=== PATIENT | female | born 1950 | race Caucasian/White ===

== ENCOUNTER 2021-11-22 11:37 | Emergency (ER) | payer OTHER ==
--- OUTSIDE RECORDS SUMMARY | 2021-11-22 11:40 | XMS REPORT | Continuity of Care Document ---
:1950 Author Organization [facility] t Address [address] [place] [address] [place] [address] Care Team Providers Name Role Phone Ogweno_B Attending Clinician Unavailable Disha ROTHMAN Attending Clinician Unavailable Disha Rothman MD Attending Clinician Doctor Unassigned, Name Attending Clinician Unavailable Wu_Ashanti Admitting Clinician Unavailable Payers Payer Name Policy Type Policy Number Effective Date Expiration Date S [facility] [id number] 2021 (MEDICARE 00:00:00 REPLACEMENT HMO) MEDICARE PART A \T\ [id number] 2009 B 00:00:00 [place] [id number] 2019 BENEFITS 00:00:00 Problems This patient has no known problems. Allergies, Adverse Reactions, Alerts Allergy Allergy Status Severity Reaction(s) Onset Inactive Treating Comm ents Source Name Type Date Date Clinician ACETAMIN DRUG Active Anaphylaxis 2020-0 Uni vers OPHEN INGREDI 2-03 ity of 00:00: [place] 00 [facility] Branch ASPIRIN DRUG Active Anaphylaxis 2020-0 Univ ers INGREDI 2-03 ity of 00:00: [place] 00 [facility] Branch CODEINE DRUG Active Anaphylaxis 2020-0 Univ ers INGREDI 2-03 ity of 00:00: [place] 00 [facility] Branch Acetamin Propensi Active Anaphylaxis 2020-0 U nivers ophen ty to 2-03 ity of adverse 00:00: [place] reaction 00 Medical s Branch Aspirin Propensi Active Anaphylaxis 2020-0 Un adriana ty to 2-03 ity of adverse 00:00: [place] reaction 00 Medical s Branch Codeine Propensi Active Anaphylaxis 2020-0 Un adriana ty to 2-03 ity of adverse 00:00: [place] reaction 00 Medical s Branch Social History Social Habit Start Date Stop Date Quantity Comments Source Sex Assigned At [facility] Smoking Status Start Date Stop Date Source Unknown if ever smoked Universit y [facility] Current every day smoker 2019-12-29 00:00:00 [facility] Ordered Filled Start Stop Current Ordering Indication Dosage Frequency Signature Comments Components Source Medication Medication Date Date Medication? Clinician (SIG) Name Name Tramadol 2020-0 Yes Take by Unive rs 100 mg 2-03 mouth. ity of tablet 21:00: Indication [place] 22 s: 4 a day Medical Branch Tramadol 2020-0 Yes Take by Unive rs 100 mg 2-03 mouth. ity of tablet 21:00: Indication [place] 22 s: 4 a day Medical Branch Tramadol 2020-0 Yes Take by Unive rs 100 mg 2-03 mouth. ity of tablet 21:00: Indication [place] 22 s: 4 a day Medical Branch morphine 15 2020-0 Yes Take by Un adriana mg TRer 2-03 mouth. ity of 21:00: [address] Branch oxyCODONE 5 2020-0 Yes Take by Un adriana mg TbOr 2-03 mouth. ity of 21:00: Indication [place] 21 s: 4 a day Medical Branch DIAZEPAM 2020-0 Yes Take by Unive rs ORAL 2-03 mouth. ity of 21:00: [place] [address] Medical Branch morphine 15 2020-0 Yes Take by Un adriana mg TRer 2-03 mouth. ity of 21:00: [place] [address] Medical Branch oxyCODONE 5 2020-0 Yes Take by Un adriana mg TbOr 2-03 mouth. ity of 21:00: Indication [place] 21 s: 4 a day Medical Branch DIAZEPAM 2020-0 Yes Take by Unive rs ORAL 2-03 mouth. ity of 21:00: [place] [address] Medical Branch morphine 15 2020-0 Yes Take by Un adriana mg TRer 2-03 mouth. ity of 21:00: [address] Branch oxyCODONE 5 2020-0 Yes Take by Un adriana mg TbOr 2-03 mouth. ity of 21:00: Indication [place] 21 s: 4 a day Medical Branch DIAZEPAM 2020-0 Yes Take by Unive rs ORAL 2-03 mouth. ity of 21:00: [address] Vital Signs Vital Name Observation Time Observation Value Comments Source Systolic blood 2019-12-29 20:53:00 105 mm[Hg] Univer sity [facility] pressure Medical Branch Diastolic blood 2019-12-29 20:53:00 72 mm[Hg] [facility] Heart rate 2019-12-29 20:53:00 97 /min [facility] Body weight 2019-12-29 20:53:00 77.111 kg [facility] Procedures Procedure Date / Time Performed Performing Clinician Caroline e ASSIGNMENT OF BENEFITS 2019-12-29 20:45:41 Doctor Unassigned, No [facility] Encounters Start End Encounter Admission Attending Care Care Encounter Source Date/Time Date/Time Type Type Clinicians Facility Department ID 2021-11-03 2021-11-03 Outpatient Ogweno_B DMG DMG [id number] [facility] 12:03:00 12:03:00 1209 [facility] 2021-10-27 2021-10-27 Outpatient Ogweno_B DMG DMG [id number] [facility] 08:02:00 08:02:00 1202 [facility] 2021-09-01 2021-09-01 [place]weno_[place] [id number]- [id number] [facility] 08:00:00 08:00:00 1007 Med[facility] Group 2021-08-22 2021-08-22 Outpatient Ogweno_B DMG DMG [id number] [facility] 01:10:00 01:10:00 0927 Med[facility] l Group 2021-03-14 2021-03-14 Outpatient DMG DMG [id number] [facility] 08:01:00 08:01:00 0419 Med[facility] l Group 2019-12-29 2019-12-29 Outpatient [facility] [id number] Univers 15:14:38 23:59:00 ANGÉLICA price [facility] 2019-12-29 2019-12-29 Hospital [facility] [id number] Univers 15:14:00 23:59:00 Encounter Angélica Gauthier John [id number] ity of Surgical [id number] Maurizio as Specialti [phone] Co dical es 809 [facility] 2019-12-29 2019-12-29 Office [facility] [id number] Univers 14:48:23 15:36:06 Visit [facility] [id number] it y of Surgical [id number] Maurizio as Specialti [id number] Co dical es 198 Branch [place] 2019-12-29 2019-12-29 Orders Doctor JESIKA [id number] Univers 00:00:00 00:00:00 Only Unassigned, JUAN FRANCISCO [id number] ity of [place] [facility] [id number] Maurizio as [phone] [place] [address] Branch Results This patient has no known results.
[2021-11-22] MEDS ORDERED: NA CHLORIDE 0.9% 500 ML ONE (14:46)
[2021-11-22 15:34] LABS: Protime INR 0.86
[2021-11-22 15:38] LABS: Hematocrit 46.9 % (36.0-45.0); Lymphocytes % 45.9 % (15.3-44.8); MPV 9.5 fL (7.6-11.3); RBC Red Blood Cell Count 4.46 M/uL (3.86-4.86)
[2021-11-22 16:08] LABS: Blood Morphology Comment NOTED (NOT SEEN); Macrocytosis 1+; Platelet Estimate ADEQ; White Blood Cell Scan OK (OK)
[2021-11-22 16:31] LABS: Potassium 4.7 mmol/L (3.5-5.1)
--- NOTE | 2021-11-22 17:41 | RAD REPORT ---
EXAM DESCRIPTION: US - Extremity Venous Uni Ltd - 11/22/2021 5:28 pm CLINICAL HISTORY: Pain;Swelling COMPARISON: None. TECHNIQUE: Real-time sonographic evaluation of the left lower extremity deep venous system was perfo rmed. FINDINGS: Echogenic material is present within portions of the left common femoral vein and the supe rficial greater saphenous vein. There is absent or only partial compression. Blood flow is diminished but not fully occluded through these vessels. The remaining portions of the common femoral vein, the femoral vein and popliteal vein show normal blood flow with good compression. No posterior tibial ve in thrombus. IMPRESSION: Thrombus is present partially occluding the left common femoral vein and extending into the greater saphenous vein.
--- NOTE | 2021-11-22 19:28 | ER ---
Nurse's Notes [facility] Name: Marleni Roth Age: 71 yrs Sex: Female : 1950 Arrival Date: 11/22/2021 Time: 11:42 Bed 16 Private MD: Diagnosis: Acute embolism and thrombosis of unspecified deep veins of left lower extremity Presentation: 11/22 12:40 Chief complaint: Patient states: two blood clots in leg x2 days; went to [place] [address] and was diagnosed yesterday. Was told to com here by [place]. Coronavirus screen: Vaccine status: Patient reports receiving the 2nd dose of the covid vaccine. Client denies travel out of the [place] in the last 14 days. Ebola Screen: Patient negative for fever greater than or equal to 101.5 degrees Fahrenheit, and additional compatible Ebola Virus Disease symptoms Patient denies exposure to infectious person. Patient denies travel to an Ebola-affected area in the 21 days before illness onset. Initial Sepsis Screen: Does the patient meet any 2 criteria? No. Patient's initial sepsis screen is negative. Does the patient have a suspected source of infection? No. Patient's initial sepsis screen is negative. Risk Assessment: Do you want to hurt yourself or someone else? Patient reports no desire to harm self or others. Onset of symptoms was November 22, 2021. 12:40 Method Of Arrival: Wheelchair [facility] 12:40 Acuity: LUCINDA 3 5 Triage Assessment: 12:45 General: Appears Pt falling asleep in motorized wheelchair . Behavior is calm, [facility] appropriate for age, drowsy, flat. Pain: Denies pain. Historical: - Allergies: 12:45 Aspirin; [facility] 12:45 Codeine; [facility] 12:45 PENICILLINS; [facility] 12:45 Erythromycin; [facility] 12:45 Tylenol; [facility] - PMHx: 12:45 Cancer; CHF; COPD; [facility] - Immunization history:: Adult Immunizations up to date, . - Social history:: Smoking status: Patient reports the use of cigarette tobacco products, smokes one pack cigarettes per day. Screenin:03 Abuse screen: Denies threats or abuse. Nutritional screening: No deficits noted. ap3 Tuberculosis screening: No symptoms or risk factors identified. 13:05 Fall Risk No fall in past 12 months (0 pts). Secondary diagnosis (15 points) impaired ap3 mobility, No IV (0 pts). Ambulatory Aid- Crutches/Cane/Walker (15 pts). Gait- Impaired (20 pts.). Mental Status- Oriented to own ability (0 pts). Total Santana Fall Scale indicates High Risk Score (45 or more points). Fall prevention measures have been instituted. Placed Close to Nursing Station Frequent Obs/Assessments Occuring As available patient and family educated on Fall Prevention Program and Strategies. Assessment: 13:03 General: Appears comfortable, Behavior is drowsy. Pain: Complains of pain in right leg ap3 and left leg. Neuro: Level of Consciousness is lethargic, Oriented to person, place, time, situation, Speech is normal. Cardiovascular: Capillary refill < 3 seconds Patient's skin is warm and dry. Respiratory: Airway is patent Respiratory effort is even, unlabored, Respiratory pattern is regular, symmetrical. 15:37 Reassessment: patient falling asleep in personal wheelchair. when nurse asked why she ap3 is so sleepy, the patient reports that she was up all night last night at another hospital and she is tired. . 20:24 Reassessment: Patient and/or family updated on plan of care and expected duration. Pain sm5 level reassessed. General: Appears in no apparent distress. Behavior is calm, cooperative. Neuro: Level of Consciousness is awake, alert, Oriented to person, place, time, situation. Vital Signs: 12:40 BP 89 / 57; Pulse 62; Resp 16; Temp 97.0; Pulse Ox 90% on R/A; Weight 79.38 kg; Height jh5 5 ft. 9 in. (175.26 cm); 12:46 BP 91 / 50; Pulse 59; Resp 18; Pulse Ox 88% ; jh5 13:01 BP 112 / 65; Pulse 56; Pulse Ox 97% on 2 lpm NC; ap3 15:46 BP 104 / 62; Pulse 49; Pulse Ox 99% on 2 lpm NC; ap3 17:58 BP 106 / 48; Pulse 50; Resp 18; Pulse Ox 98% on 2 lpm NC; tm3 19:22 BP 84 / 63; Pulse 44; Resp 12; Pulse Ox 99% on R/A; sm5 19:29 BP 112 / 53; Pulse 46; Resp 16; Pulse Ox 97% ; sm5 19:58 BP 104 / 74; Pulse 47; Resp 18; Pulse Ox 98% ; sm5 12:40 Body Mass Index 25.84 (79.38 kg, 175.26 cm) 5 ED Course: 11:42 Patient arrived in ED. ds1 12:44 Triage completed. jh5 12:46 Arm band placed on right wrist. jh5 12:56 Ozzie Segal NP is PHCP. pm1 12:56 Pavan Brandon MD is Attending Physician. pm1 12:58 Gissell Montero, SUNITHA is Primary Nurse. ll1 13:00 Patient placed in a hallway bed, on oxygen. ll1 13:04 Patient has correct armband on for positive identification. Pulse ox on. NIBP on. ap3 14:40 Alecia Ruff, SUNITHA is Primary Nurse. ap3 15:18 Inserted saline lock: 22 gauge in left upper arm, using aseptic technique. Blood ap3 collected. 16:01 Lab(s) recollected, by me, sent to lab. ap3 17:28 Extremity Venous Uni Ltd US In Process Unspecified. EDMS 20:24 No provider procedures requiring assistance completed. IV discontinued, intact, sm5 bleeding controlled, No redness/swelling at site. Pressure dressing applied. Administered Medications: 15:24 Drug: NS 0.9% 500 ml Route: IV; Rate: bolus; Site: left upper arm; ap3 19:36 Drug: Lovenox (enoxaparin) 1 mg/kg Route: Sub-Q; Site: right upper abdomen; sm5 20:25 Follow up: Response: No adverse reaction 5 Outcome: 19:28 Discharge ordered by . pm1 20:24 Discharged to home via wheelchair, with significant other. sm5 20:24 Condition: good 20:24 Discharge instructions given to patient, significant other, Instructed on discharge instructions, follow up and referral plans. medication usage, lovenox education Demonstrated understanding of instructions, follow-up care, medications, Prescriptions given X 1. 20:25 Patient left the ED. 5 Signatures: Dispatcher [employer] EDMS Maciej Montenegro tm3 Taylor, Indu ds1 Ozzie Segal, ROMA [employer]ING FACTORY WORKER pm1 Alecia Ruff RN RN ap3 Gissell Montero RN RN ll1 Kiki Ellis RN RN jh5 Jeanine Hedrick, RN RN sm5
--- NOTE | 2021-11-22 19:28 | EDPHYS ---
Physician Documentation [facility] Name: Marleni Roht Age: 71 yrs Sex: Female : 1950 Arrival Date: 11/22/2021 Time: 11:42 Bed 16 Private MD: ED Physician Pavan Brandon HPI: 11/22 13:06 This 71 yrs old Female presents to ER via Wheelchair with complaints of Blood Clot in pm1 Leg. 13:06 The patient presents with pain, swelling. The complaints affect the left leg. Context: pm1 resulted from an unknown cause. Onset: The symptoms/episode began/occurred 4 day(s) ago. Modifying factors: The symptoms are alleviated by nothing. the symptoms are aggravated by nothing. Associated signs and symptoms: Pertinent negatives shortness of breath, chest pain. Treatment prior to arrival includes: Patient had an ultrasound at the [facility] yesterday and diagnosed with DVT. She was discharged home without any medications because she reports allergy, nausea, to multiple oral anticoagulants. She requested Lovenox SQ injection prescription because she does not have any allergies to that medication. She was informed that they do not write prescriptions for Lovenox and instructed her to present to the ER here for treatment. Severity of symptoms: in the emergency department the symptoms are unchanged. The patient has experienced a previous episode, DVT in the past treated with lovenox. The patient has been recently seen by a physician: with similar presenting complaints, and apparently given a diagnosis of DVT at [facility]. Historical: - Allergies: 12:45 Aspirin; 5 12:45 Codeine; 5 12:45 PENICILLINS; 5 12:45 Erythromycin; 5 12:45 Tylenol; jh5 - PMHx: 12:45 Cancer; CHF; COPD; jh5 - Immunization history:: Adult Immunizations up to date, . - Social history:: Smoking status: Patient reports the use of cigarette tobacco products, smokes one pack cigarettes per day. ROS: 20:58 Constitutional: Negative for fever, chills, and weight loss. pm1 20:58 Skin: Negative for injury, rash, and discoloration, Neuro: Negative for headache, weakness, numbness, tingling, and seizure. 20:58 Abdomen/GI: Negative for abdominal pain, nausea, vomiting, diarrhea, and constipation, Back: Negative for injury and pain. 20:58 Cardiovascular: Negative for chest pain, palpitations. 20:58 Respiratory: Negative for shortness of breath, sputum production, wheezing. 20:58 MS/extremity: Positive for swelling, of the left leg. 20:58 All other systems are negative. Exam: 20:58 Constitutional: This is a well developed, well nourished patient who is awake, alert, pm1 and in no acute distress. Head/Face: Normocephalic, atraumatic. 20:58 Skin: Warm, dry with normal turgor. Normal color with no rashes, no lesions, and no evidence of cellulitis. 20:58 Chest/axilla: Exam negative for acute changes, Inspection: normal, Palpation: is normal. 20:58 Cardiovascular: Exam negative for acute changes, Rate: normal, Rhythm: regular, Pulses: no pulse deficits are appreciated. 20:58 Respiratory: Exam negative for acute changes, respiratory distress, shortness of breath, Breath sounds: are clear throughout. 20:58 Musculoskeletal/extremity: Extremities: grossly normal except: noted in the medial aspect of left thigh: tenderness, mild swelling. No calf tenderness, the left leg and right leg Sensation intact. 20:58 Neuro: Exam negative for acute changes, Orientation: is normal, Mentation: is normal, Motor: is normal, moves all fours. Vital Signs: 12:40 BP 89 / 57; Pulse 62; Resp 16; Temp 97.0; Pulse Ox 90% on R/A; Weight 79.38 kg; Height jh5 5 ft. 9 in. (175.26 cm); 12:46 BP 91 / 50; Pulse 59; Resp 18; Pulse Ox 88% ; jh5 13:01 BP 112 / 65; Pulse 56; Pulse Ox 97% on 2 lpm NC; ap3 15:46 BP 104 / 62; Pulse 49; Pulse Ox 99% on 2 lpm NC; ap3 17:58 BP 106 / 48; Pulse 50; Resp 18; Pulse Ox 98% on 2 lpm NC; tm3 19:22 BP 84 / 63; Pulse 44; Resp 12; Pulse Ox 99% on R/A; sm5 19:29 BP 112 / 53; Pulse 46; Resp 16; Pulse Ox 97% ; sm5 19:58 BP 104 / 74; Pulse 47; Resp 18; Pulse Ox 98% ; sm5 12:40 Body Mass Index 25.84 (79.38 kg, 175.26 cm) 5 MDM: 13:00 Patient medically screened. pm1 19:08 Counseling: I had a detailed discussion with the patient and/or guardian regarding: the pm1 historical points, exam findings, and any diagnostic results supporting the discharge/admit diagnosis, radiology results, the need for outpatient follow up, to return to the emergency department if symptoms worsen or persist or if there are any questions or concerns that arise at home. 21:02 Data reviewed: vital signs. Data interpreted: Pulse oximetry: on 2L(s) per nasal pm1 canula, Patient is on continuous home O2 is 98 %. Interpretation: normal. 11/22 14:28 Order name: CBC with Diff; Complete Time: 16:27 pm1 11/22 14:28 Order name: PT-INR; Complete Time: 17:07 pm1 11/22 13:01 Order name: Extremity Venous [facility] Ltd US; Complete Time: 19:08 pm1 11/22 14:28 Order name: BMP; Complete Time: 16:56 pm1 11/22 16:08 Order name: CBC Smear Scan; Complete Time: 16:27 EDMS 11/22 14:28 Order name: IV Saline Lock; Complete Time: 15:18 pm1 Administered Medications: 15:24 Drug: NS 0.9% 500 ml Route: IV; Rate: bolus; Site: left upper arm; ap3 19:36 Drug: Lovenox (enoxaparin) 1 mg/kg Route: Sub-Q; Site: right upper abdomen; sm5 20:25 Follow up: Response: No adverse reaction 5 Disposition: 11/23 07:27 Co-signature as Attending Physician, Pavan Brandon MD I agree with the assessment and kdr plan of care. Disposition Summary: 11/22/21 19:28 Discharge Ordered Location: Home pm1 Problem: new pm1 Symptoms: have improved pm1 Condition: Stable pm1 Diagnosis - Acute embolism and thrombosis of unspecified deep veins of left lower extremity pm1 Followup: pm1 - With: Emergency Department - When: As needed - Reason: Worsening of condition Followup: pm1 - With: Private Physician - When: 2 - 3 days - Reason: Recheck today's complaints, Continuance of care, Re-evaluation by your physician Discharge Instructions: - Discharge Summary Sheet pm1 - Deep Vein Thrombosis pm1 - Anticoagulant Injection Instructions Using a Prefilled Syringe pm1 Forms: - Medication Reconciliation Form pm1 - Thank You Letter pm1 - Antibiotic Education pm1 - Prescription Opioid Use pm1 Prescriptions: - Lovenox 100 mg/mL Subcutaneous Syringe - inject 0.8 milliliter by SUBCUTANEOUS route every 12 hours; 20 Syringe; pm1 Refills: 0, Product Selection Permitted Signatures: Dispatcher [employer] EDVA Pavan Brandon MD MD kdr Marinas, Patrick, NP PSYCHIATRIC TECHNICIAN pm1 Alecia Ruff RN RN ap3 Kiki Ellis RN RN jh5 Jeanine Hedrick RN RN sm5
[2021-11-22] MEDS ORDERED: ENOXAPARIN 80 MG/0.8 ML SQ ONE (19:34)
[2021-11-22 20:41] VITALS: TEMP 97
[2021-11-22 20:51] VITALS: BP 104/74; O2SAT 98
== END 2021-11-22 20:25 | disposition home or self-care (01) ==
LOC: ER 11:37
DX: I82.412 Acute embolism and thrombosis of left femoral vein (principal)
CPT/HCPCS: 93005; 85025; 80048; 36415; 85610; 93971; 96372; 99284; J7040

== ENCOUNTER 2022-03-14 14:55 | Emergency (ER) | payer OTHER ==
--- OUTSIDE RECORDS SUMMARY | 2022-03-14 14:59 | XMS REPORT | Continuity of Care Document ---
:1950 Author Organization [facility] t Address [address] [place] [address] [place] [address] Care Team Providers Name Role Phone Powers Attending Clinician Unavailable Wu_Ashanti Attending Clinician Unavailable Disha ROTHMAN Attending Clinician Unavailable Disha Rothman MD Attending Clinician Doctor Unassigned, Name Attending Clinician Unavailable Wu_Ashanti Admitting Clinician Unavailable Payers Payer Name Policy Type Policy Number Effective Date Expiration Date S [facility] [id number] 2021 (MEDICARE 00:00:00 REPLACEMENT HMO) MEDICARE PART A \T\ [id number] 2009 B 00:00:00 [place] [id number] 2019 BENEFITS 00:00:00 Problems This patient has [...] Source Sex Assigned At Uni versity of [place] [facility] Smoking Status Start Date Stop Date Source Unknown if ever smoked Universit y [facility] Current every day smoker 2019-12-29 [facility]:00:[address] [facility] F[facility] Start Stop Current Ordering [...] mg TRer 2-03 mouth. ity of 21:00: [place] [address] Medical Branch oxyCODONE 5 2020-0 Yes Take by Un adriana mg TbOr 2-03 mouth. ity of 21:00: Indication [place] 21 s: 4 a day Medical Branch DIAZEPAM 2020-0 Yes Take by Unive rs ORAL 2-03 mouth. ity of 21:00: [place] [address] Medical Branch morphine 15 2020-0 Yes Take by Un adriana mg TRer 2-03 mouth. ity of 21:00: [place] [address] Medical Branch oxyCODONE 5 2020-0 Yes Take by Un adriana mg TbOr 2-03 mouth. ity of 21:00: Indication [place] 21 s: 4 a day Medical Branch DIAZEPAM 2020-0 Yes Take by Unive rs ORAL 2-03 mouth. ity of 21:00: [place] [address] Medical Branch morphine 15 2020-0 Yes Take by Un adriana mg TRer 2-03 mouth. ity of 21:00: [place] [address] Medical Branch oxyCODONE 5 2020-0 Yes Take by Un adriana mg TbOr 2-03 mouth. ity of 21:00: Indication [place] 21 s: 4 a day Medical Branch DIAZEPAM 2020-0 Yes Take by Unive rs ORAL 2-03 mouth. ity of 21:00: [address] Vital Signs Vital Name Observation Time Observation Value Comments Source Systolic blood 2019-12-29 20:53:00 105 mm[Hg] Univer sity [facility] pressure Medical Branch Diastolic blood 2019-12-29 20:53:00 72 mm[Hg] [facility] Heart rate 2019-12-29 20:53:00 97 /min [facility] Body weight 2019-12-29 20:53:00 77.111 kg [facility] Procedures Procedure Date / Time Performed Performing Clinician Brenna e ASSIGNMENT OF BENEFITS 2019-12-29 20:45:41 Doctor Unassigned, No [facility] Encounters Start End Encounter Admission Attending Care Care Encounter Source Date/Time Date/Time Type Type Clinicians Facility Department ID 2021-12-[address] [facility] [id number] [address] 14:36:40 [facility] 2021-12-21 Outpatient Gio [facility] [id number] 14:36:16 [facility] 2021-11-25 2021-11-25 Outpatient Ogweno_B [facility] [id number] [facility] 09:01:00 09:01:00 1231 [facility] 2021-11-03 2021-11-03 Outpatient Ogweno_B [facility] [id number] [facility] 12:03:00 12:03:00 1209 [facility] 2021-10-27 2021-10-27 Outpatient Ogweno_B [facility] [id number] [facility] 08:02:00 08:02:00 1202 [facility] 2021-09-01 2021-09-01 Outpatient Ogweno_B [facility] DMG [id number] [facility] 08:00:00 08:00:00 1007 Med[facility] Group 2021-08-22 2021-08-22 Outpatient Ogweno_B [facility]G [id number] [facility] 01:10:00 01:10:00 0927 Med[facility] l Group 2021-03-14 2021-03-14 Outpatient DMG DMG [id number] [facility] 08:01:00 08:01:00 0419 Medica l Group 2019-12-29 2019-12-29 Outpatient O LORNA [facility] [id number] Univers 15:14:38 23:59:00 ANGÉLICA ity of [facility] 2019-12-29 2019-12-29 [facility] [id number] Univers 15:14:00 23:59:00 Encounter Angélica Lopez [id number] ity of Surgical [id number] Maurizio as Specialti [id number] Co ruchial es 809 [facility] 2019-12-29 2019-12-29 Office Lorna [facility] [id number] [facility] 14:48:23 15:36:06 Visit Angélica Lopez [id number] it y of Surgical [id number] Maurizio as Specialti [id number] Co meli es 198 [facility] 2019-12-29 2019-12-29 Orders Doctor JESIKA [id number] Univers 00:00:00 00:00:00 Only Unassigned, JUAN FRANCISCO [id number] ity of [place] [facility] [id number] Maurizio as [phone] [place] [address] Branch Results This patient has no known results.
[2022-03-14 17:35] LABS: Absolute Lymphocytes (CBC) 2.4 K/uL (0.7-4.9); Hematocrit 42.1 % (36.0-45.0); Lymphocytes % 31.3 % (15.3-44.8); MPV 8.7 fL (7.6-11.3)
[2022-03-14 17:42] LABS: Protime INR 1.02
[2022-03-14 17:51] LABS: ALT/SGPT 17 U/L (12-78); AST/SGOT 10 U/L (15-37); Albumin 3.2 g/dL (3.4-5.0); Alkaline Phosphatase 83 U/L (45-117); BUN Blood Urea Nitrogen 6 mg/dL (7-18); Bicarbonate 28 mmol/L (21-32); Bilirubin Total 0.3 mg/dL (0.2-1.0); Glucose Level 102 mg/dL (74-106); Magnesium 2.3 mg/dL (1.8-2.4); NT PRO-BNP 343 pg/mL (<125); Potassium 3.5 mmol/L (3.5-5.1); Protein, Total 6.8 g/dL (6.4-8.2); Sodium Level 141 mmol/L (136-145); Troponin High Sensitivity 5.5 pg/mL (<58.9)
[2022-03-14 17:54] LABS: Bilirubin Direct < 0.1 mg/dL (0-0.2)
--- NOTE | 2022-03-14 18:17 | RAD REPORT ---
EXAM DESCRIPTION: US - Extrem Venous W Compress Gael - 03/14/2022 6:12 pm CLINICAL HISTORY: SWELLING COMPARISON: None. TECHNIQUE: Real-time sonographic evaluation of the bilateral lower extremity common femoral, superfi cial femoral, popliteal and posterior tibial veins was performed. FINDINGS: Normal compressibility, flow augmentation, phasic flow and spontaneous flow are identified in the left and right lower extremity common femoral, superficial femoral, popliteal and posterior t ibial veins. No intraluminal filling defects seen. IMPRESSION: No DVT in either lower extremity.
--- NOTE | 2022-03-14 18:54 | RAD REPORT ---
EXAM DESCRIPTION: RAD - Chest Single View - 03/14/2022 6:25 pm CLINICAL HISTORY: SWELLING COMPARISON: Portable 11/08/2017 TECHNIQUE: AP portable chest image was obtained 03/14/2022 6:25 pm . FINDINGS: No acute lung parenchymal process seen. Interstitial pattern is similar to comparison. Sev erity of chronic pattern could mask a mild interstitial edema or infiltrate. No consolidation or mass . Hilar regions are similar to comparison. Trachea is midline. Heart and vasculature are normal. No measurable pleural effusion and no pneumotho rax. No acute bony abnormality seen. No acute aortic findings suspected. IMPRESSION: Prominent interstitial pattern similar to comparison. Baseline pattern could mask mild edema or infiltrate.
--- NOTE | 2022-03-14 19:09 | EDPHYS ---
Physician Documentation [facility] Name: Marleni Roth Age: 71 yrs Sex: Female : 1950 Arrival Date: 03/14/2022 Time: 14:56 Bed 15 Private MD: ED Physician Penny Amaro HPI: 03/14 16:30 This 71 yrs old Female presents to ER via Wheelchair with complaints of Feet Swelling, cp Abdominal Swelling. 16:30 The patient presents with swelling, tenderness. The complaints affect the right leg and cp left leg. 16:30 Context: resulted from an unknown cause, the patient is able to ambulate, with mild cp difficulty, patient reports history of DVT to left leg. 16:30 Onset: The symptoms/episode began/occurred 1 week(s) ago. Associated signs and cp symptoms: Pertinent negatives fever, warmth, weakness, chest pain, shortness of breath. Treatment prior to arrival includes: no previous treatment. Severity of symptoms: in the emergency department the symptoms are unchanged, despite home interventions. Historical: - Allergies: 16:13 Aspirin; iw 16:13 Codeine; iw 16:13 Erythromycin; iw 16:13 PENICILLINS; iw 16:13 Tylenol; iw 16:13 pain relievers; iw - PMHx: 16:13 Cancer; CHF; COPD; dvt; iw - Immunization history:: Adult Immunizations up to date. - Social history:: Smoking status: Patient denies any tobacco usage or history of. ROS: 16:35 Constitutional: Negative for body aches, chills, fever, poor PO intake. cp 16:35 Eyes: Negative for injury, pain, redness, and discharge. cp 16:35 ENT: Negative for drainage from ear(s), ear pain, sore throat, difficulty swallowing, difficulty handling secretions. 16:35 Cardiovascular: Positive for edema, Negative for chest pain, palpitations. 16:35 Respiratory: Negative for cough, shortness of breath, wheezing. 16:35 Abdomen/GI: Negative for abdominal pain, nausea, vomiting, and diarrhea. 16:35 Back: Negative for pain at rest, pain with movement. 16:35 : Negative for urinary symptoms. 16:35 Neuro: Negative for altered mental status, headache, weakness. 16:35 All other systems are negative. Exam: 16:40 Constitutional: The patient appears in no acute distress, alert, awake, cp non-diaphoretic, non-toxic, well developed, well nourished, obese. 16:40 Head/Face: Normocephalic, atraumatic. cp 16:40 Eyes: Periorbital structures: appear normal, Conjunctiva: normal, no exudate, no injection, Sclera: no appreciated abnormality, Lids and lashes: appear normal, bilaterally. 16:40 ENT: External ear(s): are unremarkable, Nose: is normal, Mouth: Lips: moist, Oral mucosa: moist, Posterior pharynx: Airway: no evidence of obstruction, patent. 16:40 Neck: ROM/movement: is normal, is supple, without pain, no range of motions limitations. 16:40 Chest/axilla: Inspection: normal. 16:40 Cardiovascular: Rate: bradycardic, Rhythm: regular, Edema: pedal edema, that is mild, ankle edema, that is moderate, JVD: is not appreciated. 16:40 Respiratory: the patient does not display signs of respiratory distress, Respirations: normal, no use of accessory muscles, no retractions, labored breathing, is not present, Breath sounds: are clear throughout, no decreased breath sounds, no stridor, no wheezing. 16:40 Abdomen/GI: Exam negative for discomfort, distension, guarding, Inspection: abdomen appears normal. 16:40 Skin: cellulitis, is not appreciated, no rash present. 16:40 Neuro: Orientation: to person, place \T\ time. Mentation: is normal, Motor: moves all fours, strength is normal. Vital Signs: 16:11 BP 125 / 64; Pulse 59; Resp 16; Temp 97.8; Pulse Ox 99% on R/A; iw 18:24 BP 138 / 64; Pulse 53; Resp 17; Pulse Ox 97% ; ll1 MDM: 17:00 Differential diagnosis: CHF, dependent edema, DVT, renal failure. cp 17:17 Patient medically screened. cp 19:08 Data reviewed: vital signs, nurses notes, lab test result(s), EKG, radiologic studies, cp plain films, ultrasound. 19:08 Test interpretation: by ED physician or midlevel provider: ECG, plain radiologic cp studies. Counseling: I had a detailed discussion with the patient and/or guardian regarding: the historical points, exam findings, and any diagnostic results supporting the discharge/admit diagnosis, lab results, radiology results, the need for outpatient follow up, a family practitioner, to return to the emergency department if symptoms worsen or persist or if there are any questions or concerns that arise at home. 03/14 16:24 Order name: Basic Metabolic Panel; Complete Time: 17:58 cp 03/14 17:59 Interpretation: Normal except: CL 108; BUN 6; GFR 61. cp 03/14 16:24 Order name: CBC with Diff; Complete Time: 17:58 cp 03/14 17:59 Interpretation: Normal except: MCV 108.0; MCH 36.1; RDW 15.3. cp 03/14 16:24 Order name: LFT's; Complete Time: 17:58 cp 03/14 16:24 Order name: Magnesium; Complete Time: 17:58 cp 03/14 16:24 Order name: NT PRO-BNP; Complete Time: 17:58 cp 03/14 17:59 Interpretation: Abnormal: NT PRO-BNP 343. cp 03/14 16:24 Order name: PT-INR; Complete Time: 17:58 cp 03/14 16:24 Order name: Troponin HS; Complete Time: 17:58 cp 03/14 16:24 Order name: XRAY Chest (1 view); Complete Time: 18:58 cp 03/14 16:24 Order name: EKG; Complete Time: 16:24 cp 03/14 16:24 Order name: Cardiac monitoring; Complete Time: 18:29 cp 03/14 16:24 Order name: EKG - Nurse/Tech; Complete Time: 18:29 cp 03/14 16:24 Order name: IV Saline Lock; Complete Time: 17:34 cp 03/14 16:24 Order name: US Extremity Venous W Compression Gael; Complete Time: 18:37 cp 03/14 16:24 Order name: Labs collected and sent; Complete Time: 17:35 cp 03/14 16:24 Order name: O2 Per Protocol; Complete Time: 17:54 cp 03/14 16:24 Order name: O2 Sat Monitoring; Complete Time: 17:53 cp Administered Medications: 19:26 Drug: Lasix (furosemide) 40 mg Route: IVP; Site: right antecubital; [facility] 19:26 Follow up: Response: Medication administered at discharge. 5 Disposition Summary: 03/14/22 19:08 Discharge Ordered Location: Home cp Problem: new cp Symptoms: have improved cp Condition: Stable cp Diagnosis - Edema, unspecified cp Followup: cp - With: Private Physician - When: 2 - 3 days - Reason: Worsening of condition Discharge Instructions: - Discharge Summary Sheet cp - Edema cp Forms: - Medication Reconciliation Form cp - Thank You Letter cp - Antibiotic Education cp - Prescription Opioid Use cp Prescriptions: - Lasix 20 mg Oral Tablet - take 1 tablet by ORAL route once daily for 7 days; 7 tablet; Refills: 0, cp Product Selection Permitted Addendum: 03/16/2022 18:40 Co-signature as Attending Physician, Penny hansen a2 Signatures: Dispatcher [employer] Nadia Louis RN RN Rafa Wooten PA PA cp Alzahri, Mohammad, MD MD ma2 Gissell Montero RN RN ll1 Jeanine Hedrick RN RN sm5 Corrections: (The following items were deleted from the chart) 03/14 19:07 16:45 This 71 yrs old Female presents to ER via Wheelchair with complaints of Feet cp Swelling, Abdominal Swelling. cp
--- NOTE | 2022-03-14 19:09 | ER ---
Nurse's Notes [facility] Name: Marleni Roth Age: 71 yrs Sex: Female : 1950 Arrival Date: 03/14/2022 Time: 14:56 Bed 15 Private MD: Diagnosis: Edema, unspecified Presentation: 03/14 16:11 Chief complaint: Patient states: jenn feet , jenn leg and jenn hip swelling started about iw a week ago, had a DVT in left leg and completed treatment. Coronavirus screen: At this time, the client does not indicate any symptoms associated with coronavirus-19. Ebola Screen: Patient negative for fever greater than or equal to 101.5 degrees Fahrenheit, and additional compatible Ebola Virus Disease symptoms Patient denies exposure to infectious person. Patient denies travel to an Ebola-affected area in the 21 days before illness onset. No symptoms or risks identified at this time. Initial Sepsis Screen: Does the patient meet any 2 criteria? No. Patient's initial sepsis screen is negative. Does the patient have a suspected source of infection? No. Patient's initial sepsis screen is negative. Risk Assessment: Do you want to hurt yourself or someone else? Patient reports no desire to harm self or others. Onset of symptoms was March 07, 2022. 16:11 Method Of Arrival: Wheelchair iw 16:11 Acuity: LUCINDA 3 iw Historical: - Allergies: 16:13 Aspirin; iw 16:13 Codeine; iw 16:13 Erythromycin; iw 16:13 PENICILLINS; iw 16:13 Tylenol; iw 16:13 pain relievers; iw - PMHx: 16:13 Cancer; CHF; COPD; dvt; iw - Immunization history:: Adult Immunizations up to date. - Social history:: Smoking status: Patient denies any tobacco usage or history of. Screenin:55 Abuse screen: Denies threats or abuse. Nutritional screening: No deficits noted. ll1 Tuberculosis screening: No symptoms or risk factors identified. Fall Risk IV access (20 points). Total Santana Fall Scale indicates No Risk (0-24 pts). Assessment: 17:54 General: Appears uncomfortable, Behavior is cooperative, appropriate for age. Pain: ll1 Complains of pain in right leg and left leg Quality of pain is described as aching, pressure, Aggravated by increased activity. GI: Reports lower abdominal pain, upper abdominal pain, bloating. Musculoskeletal: Circulation, motion, and sensation intact. Capillary refill < 3 seconds, Reports swelling BLE. 19:26 GI: Bowel sounds present X 4 quads. Abd is soft. sm5 Vital Signs: 16:11 BP 125 / 64; Pulse 59; Resp 16; Temp 97.8; Pulse Ox 99% on R/A; iw 18:24 BP 138 / 64; Pulse 53; Resp 17; Pulse Ox 97% ; ll1 ED Course: 14:56 Patient arrived in ED. am2 15:49 Rafa Thornton PA is PHCP. cp 15:49 Penny Amaro MD is Attending Physician. cp 16:13 Triage completed. iw 16:13 Arm band placed on. iw 17:35 Inserted saline lock: 22 gauge in right antecubital area, using aseptic technique. ss Blood collected. 17:53 Gissell Montero RN is Primary Nurse. ll1 17:55 Patient has correct armband on for positive identification. Bed in low position. Call ll1 light in reach. Side rails up X 1. security monitor on. Pulse ox on. NIBP on. 18:14 US Extremity Venous W Compression Jenn In Process Unspecified. EDMS 18:27 XRAY Chest (1 view) In Process Unspecified. EDMS 19:26 No provider procedures requiring assistance completed. IV discontinued, intact, sm5 bleeding controlled, No redness/swelling at site. Pressure dressing applied. Administered Medications: 19:26 Drug: Lasix (furosemide) 40 mg Route: IVP; Site: right antecubital; 5 19:26 Follow up: Response: Medication administered at discharge. 5 Outcome: 19:08 Discharge ordered by . cp 19:26 Discharged to home via wheelchair, with significant other. 5 19:26 Condition: stable 19:26 Discharge instructions given to patient, significant other, Instructed on discharge instructions, follow up and referral plans. medication usage, Demonstrated understanding of instructions, follow-up care, medications, Prescriptions given X 1. 19:26 Patient left the ED. 5 Signatures: Dispatcher [employer] EDMS Nadia Sandoval RN RN Zoraida Barba RN RN Rafa Thornton PA PA Alecia Tolentino am2 Winston, Lynsay, RN RN ll1 Floridalma, Jeanine, RN RN sm5
[2022-03-14] MEDS ORDERED: FUROSEMIDE 40 MG/4 ML VIAL ONE (19:21)
[2022-03-14 22:58] VITALS: TEMP 97.8
[2022-03-14 23:00] VITALS: BP 138/64; O2SAT 97
--- NOTE | 2022-03-15 08:07 | EKG ---
Test Date: 2022-03-14 Test Time: 18:31:37 Audio Visual Director: LML MEASUREMENT RESULTS: Intervals: Rate: 54 TN: 170 QRSD: 86 QT: 458 QTc: 434 [place]: P: 59 TN: 170 QRS: 57 T: 43 INTERPRETIVE STATEMENTS: Sinus bradycardia Otherwise normal ECG Compared to ECG 11/22/2021 19:11:40 Sinus arrhythmia no longer present ST (T wave) deviation no longer present Electronically Signed On 03-15-22 08:06:53 CDT by Jonnathan Bahena
== END 2022-03-14 19:26 | disposition home or self-care (01) ==
LOC: ER 14:55
DX: R60.9 Edema, unspecified (principal); I50.9 Heart failure, unspecified; J44.9 Chronic obstructive pulmonary disease, unspecified; Z88.3 Allergy status to other anti-infective agents; Z88.5 Allergy status to narcotic agent; Z88.6 Allergy status to analgesic agent; Z86.718 Personal history of other venous thrombosis and embolism
CPT/HCPCS: 93005; 85025; 80048; 36415; 83735; 85610; 80076; 84484; 83880; 71045; 93970; 96374; 99284; J1940

== ENCOUNTER 2022-12-02 19:32 | Emergency (ER) | payer OTHER ==
--- OUTSIDE RECORDS SUMMARY | 2022-12-02 19:34 | XMS REPORT | Continuity of Care Document ---
:1950 Author Organization [facility] t Address [address] [place] [address] Care Team Providers Name Role Phone PCP, PATIENT DOES NOT HAVE A Primary Care Physician UnavailDonna Raymundo Attending Clinician Unavailable Wu_Ashanti Attending Clinician Unavailable VINNY ROTHMAN Attending Clinician Unavailable Vinny Rothman MD Attending Clinician Doctor Unassigned, [place] Attending Clinician Unavailable Wu_Ashanti Admitting Clinician Unavailable Payers Payer Name Policy Type Policy Number Effective Date Expiration Date S [facility] [id number] 2021 (MEDICARE 00:00:00 REPLACEMENT HMO) MEDICARE PART A \T\ [id number] 2009 B 00:00:00 [place] [id number] 2019 BENEFITS 00:00:00 Problems This patient has [...] ty to 2-03 ity of adverse 00:00: [place] reaction 00 Medical s Branch Social History Social Habit Start Date Stop Date Quantity Comments Source Sex [facility]igned [facility] Smoking Status Start Date Stop Date Source Unknown if [facility] Current every day smoker 2019-12-29 00:00:00 [facility] Medications Ordered Filled Start Stop Current Ordering Indication Dosage Frequency Signature Comments Components Source Medication Medication Date Date Medication? Clinician (SIG) Name Name Tramadol 2020-0 Yes Take by Univer s 100 mg 2-03 mouth. ity of tablet 21:00: Indication [place] 22 s: 4 a day Medical Branch Tramadol 2020-0 Yes Take by Univer s 100 mg 2-03 mouth. ity of tablet 21:00: Indication [place] 22 s: 4 a day Medical Branch Tramadol 2020-0 Yes Take by Univer s 100 mg 2-03 mouth. ity of tablet 21:00: Indication [place] 22 s: 4 a day Medical Branch morphine 15 2020-0 Yes Take by Uni vers mg TRer 2-03 mouth. ity of 21:00: [place] [address] Medical Branch oxyCODONE 5 2020-0 Yes Take by Uni vers mg TbOr 2-03 mouth. ity of 21:00: Indication [place] 21 s: 4 a day Medical Branch DIAZEPAM 2020-0 Yes Take by Univer s ORAL 2-03 mouth. ity of 21:00: Medical Branch morphine 15 2020-0 Yes Take by Uni vers mg TRer 2-03 mouth. ity of 21:00: [place] [address] Medical Branch oxyCODONE 5 2020-0 Yes Take by Uni vers mg TbOr 2-03 mouth. ity of 21:00: Indication [place] 21 s: 4 a day Medical Branch DIAZEPAM 2020-0 Yes Take by Univer s ORAL 2-03 mouth. ity of 21:00: [place] [address] Medical Branch morphine 15 2020-0 Yes Take by Uni vers mg TRer 2-03 mouth. ity of 21:00: [place] [address] Medical Branch oxyCODONE 5 2020-0 Yes Take by Uni vers mg TbOr 2-03 mouth. ity of 21:00: Indication [place] 21 s: 4 a day Medical Branch DIAZEPAM 2020-0 Yes Take by Univer s ORAL 2-03 mouth. ity of 21:00: [address] Vital Signs Vital Name Observation Time Observation Value Comments Source Systolic blood 2019-12-29 20:53:00 105 mm[Hg] Univer sity [facility] Diastolic blood 2019-12-29 20:53:00 72 mm[Hg] Unive rsdee [facility] Heart rate 2019-12-29 20:53:00 97 /min [facility] Body weight 2019-12-29 20:53:00 77.111 kg [facility] Procedures Procedure Date / Time Performed Performing Clinician Sour e ASSIGNMENT OF BENEFITS 2019-12-29 20:45:41 Doctor Unassigned, No [facility] Encounters Start End Encounter Admission Attending Care Care Encounter Source Date/Time Date/Time Type Type Clinicians Facility Department ID 2021-12-21 [facility] [id number] Common 14:36:40 [facility] 2021-12-21 Out[facility] [id number] Common 14:36:16 [facility] 2022-08-11 2022-08-11 Outpatient R [facility] [id number] Univers 10:20:00 10:20:00 ity of [facility] 2021-11-25 2021-11-25 Outpatient Ogweno_B [facility] [place] [id number] [facility] 09:01:00 09:01:00 [facility] 2021-11-03 2021-11-03 Outpatient Ogweno_B [facility] [place] [id number] [facility] 12:03:00 12:03:00 1209 [facility] 2021-10-27 2021-10-27 Outpatient Ogweno_B DMG DMG [id number] [facility] 08:02:00 08:02:00 1202 [facility] 2021-09-01 2021-09-01 Outpatient Ogweno_B DMG DMG [id number] [facility] 08:00:00 08:00:00 1007 [facility] 2021-08-22 2021-08-22 Outpatient Ogweno_B DMG DMG [id number] [facility] 01:10:00 01:10:00 0927 [facility] 2021-03-14 2021-03-14 [place] [id number] [facility] 08:01:00 08:01:00 0419 [facility] 2019-12-29 2019-12-29 [facility] [id number] Univers 15:14:38 23:59:00 VINNY ity of [facility] 2019-12-29 2019-12-[address] [facility] [id number] Univers 15:14:00 23:59:00 Encounter Vinny Gauthier [email or web address] [id number] ity of Surgical [id number] Maurizio as Specialti [id number] Ca dical es 809 [facility] 2019-12-29 2019-12-[address] [facility] [id number] Univers 14:48:23 15:36:06 Visit Vinny Lopez [id number] it y of Surgical [id number] Maurizio as Specialti [id number] Ca dical es 198 [facility] 2019-12-29 2019-12-29 Orders Doctor JESIKA [id number] Univers 00:00:00 00:00:00 Only Unassigned, JUAN FRANCISCO [id number] ity of [place] [facility] [id number] Maurizio as [id number] [place] [id number] Branch Results This patient has no known results.
[2022-12-02] MEDS ORDERED: FENTANYL CITR 100 MCG/2 ML ONE ×2 (20:59→23:39)
--- NOTE | 2022-12-02 21:40 | RAD REPORT ---
EXAM DESCRIPTION: RAD - Ankle Right 3 View - 12/02/2022 9:32 pm CLINICAL HISTORY: PAIN COMPARISON: No comparisons FINDINGS/IMPRESSION: No acute fracture. No malalignment. Calcaneal spurs. Ossicle versus enthesophy te at the distal fibula.
--- NOTE | 2022-12-02 21:41 | RAD REPORT ---
EXAM DESCRIPTION: RAD - Wrist Left 3 View - 12/02/2022 9:32 pm CLINICAL HISTORY: DEFORMITY COMPARISON: No comparisons FINDINGS/IMPRESSION: Distal radial impaction fracture with intra-articular extension. The distal rad ius is displaced posteriorly by approximately 2/3 shaft with. No dislocation. Ulnar styloid fracture is also present.
--- NOTE | 2022-12-02 21:42 | RAD REPORT ---
EXAM DESCRIPTION: RAD - Shoulder Left 2 View - 12/02/2022 9:32 pm CLINICAL HISTORY: PAIN COMPARISON: No comparisons FINDINGS/IMPRESSION: No acute fracture. No malalignment. Mild left AC joint and glenohumeral joint d egenerative changes .
--- NOTE | 2022-12-02 21:43 | RAD REPORT ---
EXAM DESCRIPTION: RAD - Pelvis - 12/02/2022 9:32 pm CLINICAL HISTORY: fall COMPARISON: HIP IN OR dated 11/20/2012 FINDINGS/IMPRESSION: No acute fracture. No malalignment. No significant focal degenerative changes. Postoperative changes from screw placement and removal across the left femoral neck.
--- NOTE | 2022-12-02 21:43 | RAD REPORT ---
EXAM DESCRIPTION: RAD - Chest Single View - 12/02/2022 9:32 pm CLINICAL HISTORY: fall, near syncope COMPARISON: Chest Single View dated 03/14/2022; Chest Single View dated 11/08/2017; Chest Single View dated 01/02/2017; CHEST SINGLE VIEW dated 05/19/2014 FINDINGS: Lines: None. Lungs: No evidence of edema or pneumonia. Linear scar at the left lung base. Pleural: No significant pleural effusions or pneumothorax. Cardiac: The heart size is within normal limits. Mediastinum: Within normal limits. Bones: No acute fractures. Other: None IMPRESSION: No acute cardiopulmonary disease.
[2022-12-02] MEDS ORDERED: LIDOCAINE 1% MPF 5 ML VIAL ONE (21:47)
[2022-12-02 22:20] LABS: Absolute Lymphocytes (CBC) 4.2 K/uL (0.7-4.9); Hematocrit 44.1 % (36.0-45.0); Lymphocytes % 41.5 % (15.3-44.8); MCV 106.8 fL (80-100); MPV 9.4 fL (7.6-11.3); RBC Red Blood Cell Count 4.13 M/uL (3.86-4.86)
--- NOTE | 2022-12-02 22:25 | RAD REPORT ---
EXAM DESCRIPTION: CT - CTHCSPWOC - 12/02/2022 10:16 pm CLINICAL HISTORY: Trauma, head and neck injury. Fall, dizziness COMPARISON: Head C Spine Mpr Wo Con dated 09/08/2022 TECHNIQUE: Axial 5 mm thick images of the head were obtained. Axial 2 mm thick images of the cervical spine were obtained with sagittal and coronal reconstruction images generated and reviewed. All CT scans are performed using dose optimization technique as appropriate and may include automated exposure control or mA/KV adjustment according to patient size. FINDINGS: CT HEAD WITHOUT CONTRAST: No acute hemorrhage, hydrocephalus or extra-axial collection is identified.No areas of brain edema or midline shift. Unchanged air hypoattenuation medially within the left parietal lobe as well as in satnam th parietooccipital lobes bilaterally that likely reflect remote cortical infarcts. Mucosal thickening right maxillary sinus. The right posterior ethmoid air cells and sphenoid sinus ar e opacified.The calvarium is intact. CT CERVICAL SPINE WITHOUT CONTRAST: No fracture or subluxation.No prevertebral soft tissues swelling is identified. Carotid artery calcif ications. Trace anterolisthesis of C3 on C4. Cervical spondylosis which is most notably at the C4-5, C5-6, and C6-7 levels. There is evidence of neural foraminal narrowing bilaterally.. IMPRESSION: No acute intracranial or cervical spine findings.
[2022-12-02 22:46] LABS: Troponin High Sensitivity 8.2 pg/mL (<58.9)
[2022-12-02 22:47] LABS: Potassium 4.4 mmol/L (3.5-5.1)
[2022-12-02 22:52] LABS: Blood Morphology Comment NOTED (NOT SEEN); Burr Cells 1+; Macrocytosis 1+; Platelet Estimate ADEQ; Teardrop Cell 1+; White Blood Cell Scan OK (OK)
[2022-12-02] MEDS ORDERED: MIDAZOLAM HCL 2 MG/2 ML INJ ONE (23:38)
--- NOTE | 2022-12-03 01:14 | ER ---
Nurse's Notes [facility] Name: Marleni Roth Age: 72 yrs Sex: Female : 1950 Arrival Date: 12/02/2022 Time: 19:41 Bed 3 Private MD: Diagnosis: Closed left wrist fracture;Fall from standing;Dizziness Presentation: 12/02 19:42 Chief complaint: EMS states: 72 year old female called because she fell and hurt her ha1 left wrist and right leg. she has an obvious fracture on the left wrist. pt. reports not losing consciousness. Coronavirus screen: Vaccine status: Patient reports receiving the 2nd dose of the covid vaccine. Ebola Screen: No symptoms or risks identified at this time. Initial Sepsis Screen: Does the patient meet any 2 criteria? No. Patient's initial sepsis screen is negative. Does the patient have a suspected source of infection? No. Patient's initial sepsis screen is negative. Risk Assessment: Do you want to hurt yourself or someone else? Patient reports no desire to harm self or others. Onset of symptoms was December 02, 2022. 19:42 Method Of Arrival: EMS: [facility] ha1 19:42 Acuity: LUCINDA 3 ha1 12/03 02:33 Care prior to arrival: None. Mechanism of Injury: Fall from standing position. Trauma as6 event details: Injury occurred in the [facility], Injury occurred: at home. Injury occurred: December 02, 2022. Triage Assessment: 12/02 19:40 General: Appears uncomfortable, Behavior is cooperative. Pain: Complains of pain in ha1 left arm and right leg Pain does not radiate. Pain currently is 8 out of 10 on a pain scale. Is continuous. EENT: No deficits noted. No signs and/or symptoms were reported regarding the EENT system. Neuro: Level of Consciousness is awake, alert, obeys commands, Oriented to person, place, time, situation. Cardiovascular: Heart tones S1 S2 present Patient's skin is warm and dry. Rhythm is sinus bradycardia. Respiratory: Airway is patent Trachea midline Respiratory effort is even, unlabored, Respiratory pattern is regular, symmetrical. GI: No signs and/or symptoms were reported involving the gastrointestinal system. Abdomen is flat, non-distended. : No signs and/or symptoms were reported regarding the genitourinary system. Derm: Skin is fragile. Musculoskeletal: Circulation, motion, and sensation intact. Trauma Activation: Alert Physician: ED Physician; Name: ; Notified At: ; Arrived At: Physician: General Surgeon; Name: ; Notified At: ; Arrived At: Physician: Radiology; Name: ; Notified At: ; Arrived At: Physician: Respiratory; Name: ; Notified At: ; Arrived At: Physician: Lab; Name: ; Notified At: ; Arrived At: Historical: - Allergies: 19:53 Aspirin; ha1 19:53 Codeine; ha1 19:53 Erythromycin; ha1 19:53 PENICILLINS; ha1 19:53 Tylenol; ha1 19:53 Ibuprofen; ha1 - Home Meds: 19:53 Diazepam Oral [Active]; Eliquis oral [Active]; Morphine Oral [Active]; Trazodone Oral ha1 [Active]; - PMHx: 19:53 Cancer; CHF; COPD; DVT; ha1 - PSHx: 19:53 knee replacement; ha1 - Immunization history:: Adult Immunizations up to date. - Social history:: Smoking status: Patient reports the use of cigarette tobacco products, smokes one-half pack cigarettes per day. - Immunization history: Last tetanus immunization: unknown. Screenin:04 Abuse screen: Denies threats or abuse. Denies injuries from another. Nutritional ha1 screening: No deficits noted. Tuberculosis screening: No symptoms or risk factors identified. 12/03 02:35 [facility] ED Fall Risk Assessment (Adult) History of falling in the last 3 months, as6 including since admission Yes- single mechanical fall (1 pt) Confusion or Disorientation No (0 pts) Intoxicated or Sedated No (0 pts) Impaired Gait No (0 pts) Mobility Assist Device Used No (0 pt) Altered Elimination No (0 pt) Score/Fall Risk Level 0 - 2 = Low Risk. Primary Survey: 02:34 NO uncontrolled hemorrhage observed. A: The client is awake and alert. The airway is as6 patent. Breathing/Chest: Spontaneous respiratory effort, equal unlabored respirations, breath sounds clear bilaterally, regular pattern, symmetrical chest rise and fall. Circulation: No external hemorrhage present. Regular and strong central pulse, skin warm/dry/normal color. Disability Pupils are equal, round, reactive to light and accommodation. Client is alert. Exposure/Environment: A warming method has been applied: A warm blanket has been provided to the patient. Reassessment Alertness and Airway: Awake and alert. The airway is patent. Breathing: Spontaneous respiratory effort, equal unlabored respirations, breath sounds clear bilaterally, regular pattern with symmetrical chest rise and fall. Circulation: No external hemorrhage noted. Regular and strong central pulse, skin warm/dry/normal color. Disability: Pupils Pupils are equal, round, reactive to light and accomodation. Alert. Assessment: 12/02 19:40 General: see triage assessment . ha1 20:30 Reassessment: Patient and/or family updated on plan of care and expected duration. Pain ha1 level reassessed. Patient is alert, oriented x 3, equal unlabored respirations, skin warm/dry/pink. 21:30 Reassessment: Patient and/or family updated on plan of care and expected duration. Pain ha1 level reassessed. Patient is alert, oriented x 3, equal unlabored respirations, skin warm/dry/pink. 22:30 Reassessment: Patient and/or family updated on plan of care and expected duration. Pain ha1 level reassessed. Patient is alert, oriented x 3, equal unlabored respirations, skin warm/dry/pink. 23:31 Reassessment: Patient and/or family updated on plan of care and expected duration. Pain ha1 level reassessed. Patient is alert, oriented x 3, equal unlabored respirations, skin warm/dry/pink. talking to her son. 12/03 02:01 General: discharge pending pt becoming more alert . as6 Vital Signs: 12/02 19:42 BP 160 / 74; Pulse 50; Resp 20 S; Temp 97.9(O); Pulse Ox 93% on R/A; Weight 75.75 kg; ha1 Height 5 ft. 4 in. (162.56 cm); Pain 8/10; 20:00 BP 138 / 75; Pulse 50; Resp 14 S; Pulse Ox 94% on R/A; ha1 21:00 BP 151 / 83; Pulse 49; Resp 15 S; Pulse Ox 93% on R/A; as6 22:00 BP 145 / 74; Pulse 52; Resp 14 S; Pulse Ox 91% on R/A; as6 23:00 BP 142 / 106; Pulse 55; Resp 13 S; Pulse Ox 94% on R/A; as6 12/03 00:00 BP 169 / 87; Pulse 57; Resp 15 S; Temp 98.1(O); Pulse Ox 93% on R/A; as6 01:00 BP 155 / 90; Pulse 57; Resp 15 S; Pulse Ox 100% on 2 lpm NC; as6 02:02 BP 155 / 106; Pulse 61; Resp 13 S; Pulse Ox 94% on R/A; as6 12/02 19:42 Body Mass Index 28.67 (75.75 kg, 162.56 cm) ha1 [place] Coma Score: 02:33 Eye Response: spontaneous(4). Verbal Response: oriented(5). Motor Response: obeys as6 commands(6). Total: 15. Trauma Score (Adult): 02:33 Eye Response: spontaneous(1); Verbal Response: oriented(1); Motor Response: obeys as6 commands(2); Systolic BP: > 89 mm Hg(4); Respiratory Rate: 10 to 29 per min(4); Guy Score: 15; Trauma Score: 12 ED Course: 12/02 19:40 Arm band placed on right wrist. ha1 19:41 Patient arrived in ED. as6 19:42 Peggy Loco, SUNITHA is Primary Nurse. ha1 19:44 Trish Abrams MD is Attending Physician. sd2 19:53 Triage completed. ha1 20:04 Patient has correct armband on for positive identification. Placed in gown. Bed in low ha1 position. Call light in reach. Side rails up X 1. 21:34 XRAY Chest (1 view) In Process Unspecified. EDMS 21:34 Wrist Left (3 View) XRAY In Process Unspecified. EDMS 21:34 Shoulder Left (2 View) XRAY In Process Unspecified. EDMS 21:34 Ankle Right 3 View XRAY In Process Unspecified. EDMS 21:34 Pelvis XRAY In Process Unspecified. EDMS 21:50 Missed attempt(s): 20 gauge in right upper arm. Bleeding controlled, band aid applied, bb catheter tip intact. 21:55 Initial lab(s) drawn, by me, sent to lab. Accessed peripheral vein via ultrasound, bb utilizing dynamic ultrasound technique Powerglide midline 20g 8cm to right upper arm using hospital protocol with good blood return and flushes easily pt tolerated well. 22:17 Head C Spine MPR Wo Con CT In Process Unspecified. EDMS 23:24 Patient maintains SpO2 saturation greater than 95% on room air. Thermoregulation: warm as6 blanket given to patient. 12/03 00:45 Assist provider with reduction of left wrist using traction, manipulation, Set up for as6 procedure. Performed by Trish Abrams MD Immobilized with iraj wrap, Patient tolerated well. 00:45 Orthoglass splint: Sugar tong splint applied on left arm. Sling applied to left arm. as6 01:11 Wrist Left 2 View In Process Unspecified. EDMS 01:12 Vinny Figueroa MD is Referral Physician. sd2 02:34 IV discontinued, intact, bleeding controlled, No redness/swelling at site. Pressure as6 dressing applied. Administered Medications: 12/02 22:02 Drug: fentaNYL (PF) 50 mcg Route: IVP; Site: right upper arm; as6 12/03 02:00 Follow up: Response: No adverse reaction as6 00:40 Drug: Lidocaine (1 %) 5 ml {Note: administered by provider.} Volume: 5 ml; Route: as6 Infiltration; 02:00 Follow up: Response: No adverse reaction as6 00:42 Drug: fentaNYL (PF) 75 mcg Route: IVP; Site: right upper arm; as6 02:00 Follow up: Response: No adverse reaction as6 00:42 Drug: Midazolam 1 mg Route: IVP; Site: right upper arm; as6 02:00 Follow up: Response: No adverse reaction as6 Medication: 02:34 VIS not applicable for this client. as6 Intake: 02:33 PO: 75ml (Water); Total: 75ml. as6 Outcome: 01:13 Discharge ordered by MD. sd2 02:34 Discharged to home via wheelchair, with significant other. as6 02:34 Condition: stable 02:34 Discharge instructions given to patient, significant other, Instructed on discharge instructions, follow up and referral plans. Demonstrated understanding of instructions, follow-up care. 02:35 Patient's length of stay in the Emergency Department was greater than 2 hours. pending as6 reduction Patient's length of stay extended due to 02:35 Patient left the ED. as6 Signatures: Dispatcher [employer] EDOR Sherita Hannah RN RN bb Alfredo Coello RN RN as6 Trish Abrams MD MD sd2 Peggy Loco RN RN ha1 Corrections: (The following items were deleted from the chart) 01:58 00:00 BP 169 / 87; Pulse 57bpm; Resp 15bpm; Spontaneous; Pulse Ox 93% RA; as6 as6
--- NOTE | 2022-12-03 01:14 | EDPHYS ---
Physician Documentation [facility] Name: Marleni Roth Age: 72 yrs Sex: Female : 1950 Arrival Date: 12/02/2022 Time: 19:41 Bed 3 Private MD: ED Physician Trish Abrams HPI: 12/02 20:48 This 72 yrs old Female presents to ER via EMS with complaints of fall. sd2 20:48 72-year-old female presents via EMS with chief complaint of injuries status post fall. sd2 She reports she was walking to the front door when she began to feel dizzy and then her right ankle rolled causing her to fall onto the ground. She does report hitting her head and had unknown LOC. She denies any further dizziness currently. She reports pain to her bilateral hips, left wrist, right ankle and left shoulder.. Historical: - Allergies: 19:53 Aspirin; ha1 19:53 Codeine; ha1 19:53 Erythromycin; ha1 19:53 PENICILLINS; ha1 19:53 Tylenol; ha1 19:53 Ibuprofen; ha1 - Home Meds: 19:53 Diazepam Oral [Active]; Eliquis oral [Active]; Morphine Oral [Active]; Trazodone Oral ha1 [Active]; - PMHx: 19:53 Cancer; CHF; COPD; DVT; ha1 - PSHx: 19:53 knee replacement; ha1 - Immunization history:: Adult Immunizations up to date. - Social history:: Smoking status: Patient reports the use of cigarette tobacco products, smokes one-half pack cigarettes per day. - Immunization history: Last tetanus immunization: unknown. ROS: 20:48 Constitutional: Negative for fever, chills, and weight loss, Eyes: Negative for injury, sd2 pain, redness, and discharge, Cardiovascular: Negative for chest pain, palpitations, and edema, Respiratory: Negative for shortness of breath, cough, wheezing. Abdomen/GI: Negative for abdominal pain, nausea, vomiting, diarrhea. MS/Extremity: Positive for injury and deformity, Skin: Negative for injury, rash, and discoloration, Neuro: Negative for headache, numbness and tingling. Exam: 20:48 Constitutional: This is a well developed, well nourished patient who is awake, alert, sd2 and in no acute distress. Head/Face: Normocephalic, atraumatic. Eyes: EOMI, normal conjunctiva bilaterally Chest/axilla: Normal chest wall appearance and motion. Nontender with no deformity. Cardiovascular: Regular rate and rhythm with a normal S1 and S2. No gallops, murmurs, or rubs. 2+ distal pulses. Respiratory: Lungs have equal breath sounds bilaterally, clear to auscultation and percussion. No rales, rhonchi or wheezes noted. No increased work of breathing, no retractions or nasal flaring. Abdomen/GI: Soft, non-tender, with normal bowel sounds. No guarding or rebound. No evidence of tenderness throughout. Skin: Warm, dry with normal turgor. Normal color with no rashes, no lesions, and no evidence of cellulitis. MS/ Extremity: Pulses equal, no cyanosis. Neurovascular intact. TTP of L posterior shoulder, L wrist with obvious deformity, R ankle laterally and medially and bilateral hips. Pelvis stable. Psych: Awake, alert, with orientation to person, place and time. Behavior, mood, and affect are within normal limits. 23:21 ECG was reviewed by the Attending Physician. Sinus bradycardia, rate 57, no STEMI sd2 criteria Vital Signs: 19:42 BP 160 / 74; Pulse 50; Resp 20 S; Temp 97.9(O); Pulse Ox 93% on R/A; Weight 75.75 kg; ha1 Height 5 ft. 4 in. (162.56 cm); Pain 8/10; 20:00 BP 138 / 75; Pulse 50; Resp 14 S; Pulse Ox 94% on R/A; ha1 21:00 BP 151 / 83; Pulse 49; Resp 15 S; Pulse Ox 93% on R/A; as6 22:00 BP 145 / 74; Pulse 52; Resp 14 S; Pulse Ox 91% on R/A; as6 23:00 BP 142 / 106; Pulse 55; Resp 13 S; Pulse Ox 94% on R/A; as6 08 00:00 BP 169 / 87; Pulse 57; Resp 15 S; Temp 98.1(O); Pulse Ox 93% on R/A; as6 01:00 BP 155 / 90; Pulse 57; Resp 15 S; Pulse Ox 100% on 2 lpm NC; as6 02:02 BP 155 / 106; Pulse 61; Resp 13 S; Pulse Ox 94% on R/A; as6 12/02 19:42 Body Mass Index 28.67 (75.75 kg, 162.56 cm) ha1 [place] Coma Score: 02:33 Eye Response: spontaneous(4). Verbal Response: oriented(5). Motor Response: obeys as6 commands(6). Total: 15. Trauma Score (Adult): 02:33 Eye Response: spontaneous(1); Verbal Response: oriented(1); Motor Response: obeys as6 commands(2); Systolic BP: > 89 mm Hg(4); Respiratory Rate: 10 to 29 per min(4); [place] Score: 15; Trauma Score: 12 Procedures: :07 Splinting: Splint applied to left arm using Orthoglass splint, sling, applied by sd2 myself. tech. post reduction film - reveals improved alignment, Examined by me, post splint application: neurovascular intact, 2+ distal pulses palpable, brisk capillary refill noted, Patient tolerated well. Reduction: of the left wrist, using traction, manipulation, Finger traps with 5 lb weight to gravity, Immobilized with wrist splint, Patient tolerated well. Post reduction film - reveals improved alignment. Joint Treatment: MDM: 12/02 19:45 Patient medically screened. sd2 20:48 Differential Diagnosis Differential diagnosis includes but is not limited to: Fracture, sd2 contusion, abrasion, closed head injury, pneumothorax, intra-abdominal injury, intracranial hemorrhage, spinal injury among others. Data reviewed: vital signs, nurses notes. 12/03 01:07 Data reviewed: lab test result(s), EKG, radiologic studies. Counseling: I had a sd2 detailed discussion with the patient and/or guardian regarding: the historical points, exam findings, and any diagnostic results supporting the discharge/admit diagnosis, lab results, radiology results, the need for outpatient follow up, to return to the emergency department if symptoms worsen or persist or if there are any questions or concerns that arise at home. ED course: Labs and imaging reviewed. Labs grossly WNCL. Imaging with no acute findings aside from distal radius closed impacted fracture. Pt was reduced with use of hematoma block with 5 mL 0.5% bupivacaine and 5 mL 1% lidocaine injected into the L wrist joint hematoma. Pt hung from finger traps with 5 lb weight and traction and manipulation performed with improved alignment. Pt remains closed and NVI. Placed in sugar tong splint and pt to follow up outpatient with Orthopedics. Pt and at in agreement with treatment plan and verbalize understanding of strict return precautions. . 12/02 20:17 Order name: Basic Metabolic Panel; Complete Time: 22:54 la12/02 20:17 Order name: CBC with Diff; Complete Time: 22:54 la12/02 20:17 Order name: NT PRO-BNP; Complete Time: 22:54 la12/02 20:17 Order name: Troponin HS; Complete Time: 22:54 la12/02 20:17 Order name: XRAY Chest (1 view); Complete Time: 22:30 12/02 22:32 Order name: CBC Smear Scan; Complete Time: 22:54 EDMS 12/02 20:17 Order name: Wrist Left (3 View) XRAY; Complete Time: 22:30 12/02 20:17 Order name: Shoulder Left (2 View) XRAY; Complete Time: 22:30 12/02 20:17 Order name: Ankle Right 3 View XRAY; Complete Time: 22:30 12/02 20:17 Order name: Pelvis XRAY; Complete Time: 22:30 12/02 20:59 Order name: Head C Spine MPR Wo Con CT; Complete Time: 22:30 12/03 01:11 Order name: Wrist Left 2 View EDMS 12/02 20:17 Order name: EKG; Complete Time: 20:18 12/02 20:17 Order name: Cardiac monitoring; Complete Time: 20:17 la12/02 20:17 Order name: EKG - Nurse/Tech; Complete Time: 23:10 12/02 20:17 Order name: IV Saline Lock; Complete Time: 22:02 la12/02 20:17 Order name: Labs collected and sent; Complete Time: 22:02 12/02 20:17 Order name: O2 Per Protocol; Complete Time: 20:17 12/02 20:17 Order name: O2 Sat Monitoring; Complete Time: 20:17 la1 Administered Medications: 12/02 22:02 Drug: fentaNYL (PF) 50 mcg Route: IVP; Site: right upper arm; as6 12/03 02:00 Follow up: Response: No adverse reaction as6 00:40 Drug: Lidocaine (1 %) 5 ml {Note: administered by provider.} Volume: 5 ml; Route: as6 Infiltration; 02:00 Follow up: Response: No adverse reaction as6 00:42 Drug: fentaNYL (PF) 75 mcg Route: IVP; Site: right upper arm; as6 02:00 Follow up: Response: No adverse reaction as6 00:42 Drug: Midazolam 1 mg Route: IVP; Site: right upper arm; as6 02:00 Follow up: Response: No adverse reaction as6 Disposition Summary: 12/03/22 01:13 Discharge Ordered Location: Home sd2 Problem: new sd2 Symptoms: have improved sd2 Condition: Stable sd2 Diagnosis - Closed left wrist fracture sd2 - Fall from standing sd2 - Dizziness sd2 Followup: sd2 - With: Vinny Figueroa MD - When: 2 - 3 days - Reason: Recheck today's complaints, Continuance of care, Re-evaluation by your physician Discharge Instructions: - Discharge Summary Sheet sd2 - Wrist Splint, Adult sd2 - Closed Reduction for Wrist or Forearm, Care After sd2 - Closed Reduction for Wrist or Forearm sd2 Forms: - Medication Reconciliation Form sd2 - Thank You Letter sd2 - Antibiotic Education sd2 - Prescription Opioid Use sd2 Signatures: Dispatcher [employer] EDMS Clement Cardenas, PRODUCT ANALYST-C PRODUCT ANALYST-Cla1 Alfredo Coello RN RN as6 Trish Abrams MD MD sd2 Peggy Loco RN RN ha1 Corrections: (The following items were deleted from the chart) 01:11 00:55 Wrist Left 3 View+RAD.[email or web address].BRZ ordered. EDMS EDMS
[2022-12-03 03:35] VITALS: TEMP 98.1
[2022-12-03 03:38] VITALS: BP 155/106; O2SAT 94
--- NOTE | 2022-12-03 20:12 | RAD REPORT ---
EXAM DESCRIPTION: Wrist Left 2 View 12/03/2022 1:23 AM VACATION PLANNER CLINICAL HISTORY: 72 years, Female, DEFORMITY COMPARISON: On the report is available for interpretation FINDINGS: 2 X-ray views of the left wrist (frontal and lateral views) were performed. The presence o f Fiberglas cast is greater detail. There is a transverse fracture within the distal portion of the r adius and styloid ulnar process. Radiocarpal joint is preserved. There is no significant angulation. Minimal nonsignificant diastases is identified. IMPRESSION: Fiberglass cast obscured detail. Transverse fracture within the distal portion of the radius and styloid process. Electronically signed by: Obi Marcelino MD 12/03/2022 1:24 AM VACATION PLANNER Due to temporary technical issues with the PACS/Fluency reporting system, reports are being signed by the in house radiologists without review as a courtesy to insure prompt reporting. The interpreting radiologist is fully responsible for the content of the report.
--- NOTE | 2022-12-04 16:29 | EKG ---
Test Date: 2022-12-02 Test Time: 23:06:51 Chopped Strand Operator: JERRY MEASUREMENT RESULTS: Intervals: Rate: 57 [place]: 180 QRSD: 84 QT: 446 QTc: 434 [place]: P: 66 [place]: 180 QRS: 70 T: 60 INTERPRETIVE STATEMENTS: Sinus bradycardia Otherwise normal ECG Compared to ECG 09/08/2022 16:20:50 Sinus arrhythmia no longer present ST (T wave) deviation no longer present Electronically Signed On 12-04-22 16:27:22 POLE INSPECTOR by John Weinberg
== END 2022-12-03 02:35 | disposition home or self-care (01) ==
LOC: ER 19:32
DX: S52.502A Unspecified fracture of the lower end of left radius, initial encounter for closed fracture (principal); S52.602A Unspecified fracture of lower end of left ulna, initial encounter for closed fracture; R42 Dizziness and giddiness; M25.571 Pain in right ankle and joints of right foot; M25.512 Pain in left shoulder; W18.30XA Fall on same level, unspecified, initial encounter; Z88.0 Allergy status to penicillin; Z88.3 Allergy status to other anti-infective agents; Z88.5 Allergy status to narcotic agent; Z88.6 Allergy status to analgesic agent; F17.210 Nicotine dependence, cigarettes, uncomplicated
CPT/HCPCS: 93005; 85025; 80048; 36415; 84484; 83880; 70450; 72125; 71045; 72170; 73030; 73110; 73100; 73610; 96375; 96374; 99285; 25605; J2001; J2250; J3010 ×2

== ENCOUNTER 2025-03-20 01:49 | Emergency (ER) | payer OTHER ==
--- OUTSIDE RECORDS SUMMARY | 2025-03-20 01:52 | XMS REPORT | Continuity of Care Document ---
Author Name Unknown Address [address] [place] [address] [facility] [place] Address 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 Role Phone PCP, PATIENT DOES NOT HAVE A Primary Care Physic martín Unavailable Donna Powers Attending Clinician Unavailable ANTHONY CONNER Attending Clinician Unavailable Anthony Conner MD Attending Clinician [phone] Silverio Bardales MD Attending Clinician [phone] Doctor Unassigned, Borger Attending Clinician U Angélica Alejandre MD Attending Clinician [phone] ANGÉLICA SAMS Attending Clinician UnavailSabiha Juárez Attending Clinician [phone] SABIHA ETIENNE Attending Clinician Unavailable Jacinta Monk LCSW Attending Clinician [phone] SITA MARTINEZ Attending Clinician Unavaila ble Lab, Ang - Db Attending Clinician Unavailable Ogweno_B Attending Clinician Unavailable Ogweno_B Admitting Clinician Unavailable Payers Payer Name Policy Type Policy Number Effective Date Expirati on Date Source HUMAN MEDICARE [id number] 2024 00:00:00 Yekra (MEDICARE REPLACEMENT HMO) [id number] 2021 00:00:00 MEDICARE PART A \T\ B [id number] 2009 00:00:00 [employer] [id number] 2019 00:00:00 Problems Condition Name Condition Details Condition Category Status Onset Date Resolution Date Last Treatment Date Treating Clinician Comments Source Left wrist fracture Left wrist fracture Disease Active 0 1- 00:00: 00 [facility] Left wrist fracture Left wrist fracture Disease Active 0 - 00:00: 00 [facility] Allergies, Adverse Reactions, Alerts Allergy Name Allergy Type Status Severity Reaction(s) Onset Date Inactive Date Treating Clinician Comments Source ERYTHROM YCIN ETHYLSUC CINATE DRUG INGREDI Active Anaphylaxis 0 - 00:00: 00 [facility] IBUPROFE N DRUG INGREDI Active Anaphylaxis 0 - 00:00: 00 [facility] ACETAMIN OPHEN-CO DEINE DRUG Active Anaphylaxis 0 - 00:00: 00 [facility] MACROLID E ANTIBIOT ICS Drug Class Active Anaphylaxis 0 - 00:00: 00 [facility] Erythrom ycin Ethylsuc cinate Propensi ty to adverse reaction s Active Anaphylaxis 0 -13 00:00: 00 [facility] Ibuprofe n Propensi ty to adverse reaction s Active Anaphylaxis 0 -13 00:00: 00 [facility] Macrolid e Antibiot ics Propensi ty to adverse reaction s Active Anaphylaxis 0 -13 00:00: 00 [facility] Acetamin ophen-Co deine Propensi ty to adverse reaction s Active Anaphylaxis 0 1-13 00:00: 00 [facility] ACETAMIN OPHEN DRUG INGREDI Active Anaphylaxis 2020-0 2-03 00:00: 00 [facility] ASPIRIN DRUG INGREDI Active Anaphylaxis 2020-0 2-03 00:00: 00 [facility] CODEINE DRUG INGREDI Active Anaphylaxis 2020-0 2-03 00:00: 00 [facility] Acetamin ophen Propensi ty to adverse reaction s Active Anaphylaxis 2020-0 2-03 00:00: 00 [facility] Aspirin Propensi ty to adverse reaction s Active Anaphylaxis 2020-0 2-03 00:00: 00 [facility] Codeine Propensi ty to adverse reaction s Active Anaphylaxis 0 203 00:00: 00 [facility] PENICILL IN DRUG INGREDI Active Anaphylaxis 0 04-24 00:00: 00 [facility] Penicill in Propensi ty to adverse reaction s Active Anaphylaxis 0 04-24 00:00: 00 [facility] MEPERIDI NE DRUG INGREDI Active High Rash 0 04-11 00:00: 00 [facility] Meperidi ne Propensi ty to adverse reaction s Active Rash 0 04-11 00:00: 00 [facility] HYDROCOD ONE DRUG INGREDI Active ITCHING 0 08-05 00:00: 00 [facility] Hydrocod one Propensi ty to adverse reaction s Active Rash 0 08-05 00:00: 00 [facility] Tetracyc line Propensi ty to adverse reaction s Active Anaphylaxis 0 3 00:00: 00 [facility] PENTAZOC INE LACTATE DRUG INGREDI Active High Anaphylaxis 0 3- 00:00: 00 [facility] TETRACYC LINE DRUG INGREDI Active Anaphylaxis 0 3- 00:00: 00 [facility] Pentazoc ine Lactate Propensi ty to adverse reaction s Active Rash 0 3- 00:00: 00 [facility] Social History Social Habit Start Date Stop Date Quantity Comments Source Sexual orientation U [facility] History of tobacco use Smokes tobacco daily [facility] Exposure to SARS-CoV-2 (event) 2023-01-15 00:00:00 2023-01-25 09:59:00 Not sure [facility] History of Social function 2022-12-08 00:00:00 2022-12-08 00:00:00 [facility] Sex assigned at 1950 00:00:00 1950 00:00:00 [facility] Smoking Status Start Date Stop Date Source Unknown if ever smoked [facility] Smokes tobacco daily 2022-12-28 00:00:00 [facility] Medications Ordered Medication Name Filled Medication Name Start Date Stop Date Current Medication? Ordering Clinician Indication Dosage Frequency Signature (SIG) Comments Components Source traZODone 100 mg tablet 02-19 08:42: 58 Yes 100mg Take 1 tablet by mouth 4 (four) times daily. [facility] oxyCODONE 5 mg TbOr 02-19 08:42: 11 02-19 00:00 :00 No Take by mouth. Indication s: 4 a day [facility] DIAZEPAM ORAL 02-19 08:41: 55 02-19 00:00 :00 No Take by mouth. [facility] Tramadol 100 mg tablet 02-19 08:41: 36 02-19 00:00 :00 No Take by mouth. Indication s: 4 a day [facility] morphine 15 mg TRer 02-19 08:41: 30 02-19 00:00 :00 No Take by mouth. [facility] oxyCODONE 5 mg TbOr 02-19 08:41: 14 Yes 5mg Take 5 mg by mouth 4 (four) times daily. [facility] morphine 100 mg TR12 02-19 08:39: 19 Yes 50mg Take 50 mg by mouth in the morning and 50 mg in the evening. [facility] diazePAM 5 mg tablet 02-19 08:38: 04 Yes 5mg Take 1 tablet by mouth as needed. [facility] gabapentin 300 mg capsule 02-19 08:37: 09 Yes 300mg Take 1 capsule by mouth in the morning and 1 capsule in the evening. [facility] pravastatin 80 mg tablet 02-19 08:36: 21 Yes 80mg Take 1 tablet by mouth in the morning. [facility] Docusate Sodium 50 mg/15 mL Syrp 02-19 08:36: 01 Yes 50mg Take 50 mg by mouth in the morning and 50 mg in the evening. [facility] apixaban 5 mg tablet 2023-0 3-27 08:35: 19 Yes 5mg Take 1 tablet by mouth in the morning. [facility] traMADoL 50 mg tablet 2022-0 1-25 00:00: 00 12-28 05:59 :00 No 4647 50mg Take 1 tablet by mouth every 6 (six) hours as needed for Pain (scale 4-6) for up to 7 days. Indication s: acute pain [facility] Tramadol 100 mg tablet 2019-0 2-03 21:00: 22 Yes Take by mouth. Indication s: 4 a day [facility] morphine 15 mg TRer 2020-0 2-03 21:00: 21 Yes Take by mouth. [facility] oxyCODONE 5 mg TbOr 2019-0 2-03 21:00: 21 Yes Take by mouth. Indication s: 4 a day [facility] DIAZEPAM ORAL 2019-0 2-03 21:00: 21 Yes Take by mouth. [facility] Tramadol 100 mg tablet 2019-0 2-03 15:00: 22 Yes Take by mouth. Indication s: 4 a day [facility] morphine 15 mg TRer 2020-0 2-03 15:00: 21 Yes Take by mouth. [facility] oxyCODONE 5 mg TbOr 2019-0 2-03 15:00: 21 Yes Take by mouth. Indication s: 4 a day [facility] DIAZEPAM ORAL 2019-0 2-03 15:00: 21 Yes Take by mouth. [facility] Vital Signs Vital Name Observation Time Observation Value Comments S ource Systolic blood pressure 2024-09-25 19:32:00 91 mm[Hg] asymptomatic- provider notified. [facility] Diastolic blood pressure 2024-09-25 19:32:00 57 mm[Hg] asymptomatic- provider notified. [facility] Heart rate 2024-09-25 19:32:00 65 /min [facility] Body temperature 2024-09-25 19:32:00 36.56 Guerita [facility] Body height 2024-09-25 19:32:00 172.7 cm [facility] Body weight 2024-09-25 19:32:00 64.864 kg [facility] BMI 2024-09-25 19:32:00 21.74 kg/m2 [facility] Oxygen saturation in Arterial blood by Pulse oximetry 2024-09-25 19:32:00 96 /min [facility] Body height 2023-01-25 16:03:00 172.7 cm [facility] Body weight 2023-01-25 16:03:00 78.472 kg [facility] BMI 2023-01-25 16:03:00 26.30 kg/m2 [facility] Body height 2022-12-28 20:40:00 172.7 cm [facility] Body weight 2022-12-28 20:40:00 78.472 kg [facility] BMI 2022-12-28 20:40:00 26.30 kg/m2 [facility] Systolic blood pressure 2022-12-08 16:00:00 114 mm[Hg] [facility] Diastolic blood pressure 2022-12-08 16:00:00 75 mm[Hg] [facility] Heart rate 2022-12-08 16:00:00 75 /min [facility] Body height 2022-12-08 16:00:00 172.7 cm [facility] Body weight 2022-12-08 16:00:00 78.881 kg [facility] BMI 2022-12-08 16:00:00 26.44 kg/m2 [facility] Oxygen saturation in Arterial blood by Pulse oximetry 2022-12-08 16:00:00 94 /min [facility] Systolic blood pressure 2019-12-29 20:53:00 105 mm[Hg] [facility] Diastolic blood pressure 2019-12-29 20:53:00 72 mm[Hg] [facility] Heart rate 2019-12-29 20:53:00 97 /min [facility] Body weight 2019-12-29 20:53:00 77.111 kg [facility] Procedures Procedure Date / Time Performed Performing Clinician Source PATIENT QUESTIONNAIRE 2023-02-26 05:01:00 Doctor Unassigned, [place] [facility] INSURANCE CORRESPONDENCE 2023-02-01 06:01:00 Doc tor Unassigned, [place] [facility] OPERATIVE NOTES 2022-12-20 06:01:00 Doctor Unass igned, [place] [facility] ASSIGNMENT OF BENEFITS 2022-12-08 15:08:43 Docto r Unassigned, [place]ger [facility] ASSIGNMENT OF BENEFITS 2019-12-29 20:45:41 Docto r Unassigned, [place] [facility] Encounters Start Date/Time End Date/Time Encounter Type Admission Type Attending [facility] Care Facility Care Department Encounter ID Source 2021-12-21 14:36:40 Outpatient Donna Powers [facility] [id number] [facility] 2021-12-21 14:36:16 Outpatient Donna Powers [facility] [id number] [facility] 2024-12-11 13:45:00 2024-12-11 13:45:00 Outpatient R ANTHONY CONNER [facility] [id number] [facility] 2024-09-25 00:00:00 2024-09-25 16:13:58 Telephone Dalila [facility] [id number] 350.1.13.10 4.2.7.2.686 [id number] [facility] 2024-09-25 14:45:00 2024-09-25 15:11:28 Outpatient R MARILEE CONNERIQ [facility] [id number] [facility] 2024-09-25 14:45:00 2024-09-25 15:11:28 Office Visit Dalila [facility] [id number] 350.1.13.10 4.2.7.2.686 [id number] [facility] 2024-09-12 00:00:00 2024-09-12 00:00:00 Outpatient R [facility] [id number] [facility] 2024-09-03 00:00:00 2024-09-03 14:22:56 Letter (Out) Silverio Bardales [facility] ([facility]) 1.2840.114 350.1.13.10 4.2.7.2.686 [id number] [facility] 2023-02-26 00:00:00 2023-02-26 00:00:00 Orders Only Doctor Unassigned, [place]ger [facility] 1.2840.114 350.1.13.10 4.2.7.2.686 [id number] [facility] 2023-02-19 00:00:00 2023-02-19 00:00:00 Telephone Angélica Sams [facility] 1.2840.114 350.1.13.10 4.2.7.2.686 [id number] [facility] 2023-02-01 00:00:00 2023-02-01 00:00:00 Orders Only Doctor Unassigned, [place]ger [facility] 1.2840.114 350.1.13.10 4.2.7.2.686 [id number] [facility] 2023-01-25 10:04:42 2023-01-25 23:59:00 Outpatient R ANGÉLICA SAMS [facility] [id number] [facility] 2023-01-25 10:30:00 2023-01-25 10:45:00 Office Visit Jaimie [facility] 1.2840.114 350.1.13.10 4.2.7.2.686 [id number] [facility] 2022-12-28 14:51:36 2022-12-28 23:59:00 Outpatient R JAIMIE [facility] [id number] [facility] 2022-12-28 14:45:00 2022-12-28 15:00:00 Office Visit Jaimie [facility] 1..840.114 350.1.13.10 4.2.7.2.686 [id number] [facility] 2022-12-27 14:00:00 2022-12-27 14:00:00 Outpatient SABIHA LUU [facility] [id number] [facility] 2022-12-26 00:00:00 2022-12-26 00:00:00 Telephone Angélica Sams [facility] 1.840.114 350.1.13.10 4.2.7.2.686 [id number] [facility] 2022-12-21 00:00:00 2022-12-21 00:00:00 Patient Outreach Jacinta Monk [facility] 1.840.114 350.1.13.10 4.2.7.2.686 [id number] [facility] 2022-12-20 00:00:00 2022-12-20 00:00:00 Outpatient ANGÉLICA WHITNEY [facility] [id number] [facility] 2022-12-20 00:00:00 2022-12-20 00:00:00 Telephone Angélica Sams [facility] 1.840.114 350.1.13.10 4.2.7.2.686 [id number] [facility] 2022-12-20 00:00:00 2022-12-20 00:00:00 Orders Only Doctor Unassigned, Borger [facility] 1.84.114 350.1.13.10 4.2.7.2.686 [id number] [facility] 2022-12-19 15:00:00 2022-12-19 15:00:00 Outpatient SITA JESSICA [facility] [id number] [facility] 2022-12-18 15:45:00 2022-12-18 16:00:00 Acid Adjuster Visit Lab, John - Db Angélica Sams [facility] 1.84114 350.1.13.10 4.2.7.2.686 [id number] [facility] 2022-12-18 15:45:00 2022-12-18 15:45:00 Outpatient R ANGÉLICA SAMS [facility] [id number] [facility] 2022-12-18 00:00:00 2022-12-18 00:00:00 Telephone Angélica Sams [facility] 1.84.114 350.1.13.10 4.2.7.2.686 [id number] [facility] 2022-12-18 00:00:00 2022-12-18 00:00:00 Telephone Angélica Sams [facility] 1.84114 350.1.13.10 4.2.7.2.686 [id number] [facility] 2022-12-08 09:00:00 2022-12-08 10:36:33 Outpatient R SABIHA ETIENNE [facility] [id number] [facility] 2022-12-08 09:00:00 2022-12-08 10:36:33 Office Visit Sabiha Etienne [facility] 1.114 350.1.13.10 4.2.7.2.686 [id number] [facility] 2022-12-08 00:00:00 2022-12-08 00:00:00 Orders Only Doctor Unassigned, [place] [facility] 1.114 350.1.13.10 4.2.7.2.686 [id number] [facility] 2022-12-08 00:00:00 2022-12-08 00:00:00 Telephone Sabiha Etienne [facility] 1.2.840.114 350.1.13.10 4.2.7.2.686 [id number] [facility] 2022-12-07 00:00:00 2022-12-07 00:00:00 Telephone Angélica Sams [facility] 1.2.840.114 350.1.13.10 4.2.7.2.686 [id number] [facility] 2022-08-11 10:20:00 2022-08-11 10:20:00 Outpatient R [facility] [id number] [facility] 2021-11-25 09:01:00 2021-11-25 09:01:00 Outpatient Ogweno_B DMG DMG [id number] [facility] 2021-11-03 12:03:00 2021-11-03 12:03:00 Outpatient Ogweno_B DMG DMG [id number] [facility] 2021-10-27 08:02:00 2021-10-27 08:02:00 Outpatient Ogweno_B DMG DMG [id number] [facility] 2021-09-01 08:00:00 2021-09-01 08:00:00 Outpatient Ogweno_B DMG DMG [id number] [facility] 2021-08-22 01:10:00 2021-08-22 01:10:00 Outpatient Ogweno_B DMG DMG [id number] [facility] 2021-03-14 08:01:00 2021-03-14 08:01:00 Outpatient DMG DMG [id number] [facility] 2019-12-29 15:14:38 2019-12-29 23:59:00 Outpatient O ANGÉLICA SAMS [facility] [id number] [facility] 2019-12-29 15:14:00 2019-12-29 23:59:00 Hospital Encounter Angélica Sams [facility] 1.2.840.114 350.1.13.10 4.2.7.2.686 [id number] [facility] 2019-12-29 14:48:23 2019-12-29 15:36:06 Office Visit Angélica Sams [facility] 1.2.840.114 350.1.13.10 4.2.7.2.686 [id number] [facility] 2019-12-29 00:00:00 2019-12-29 00:00:00 Orders Only Doctor Unassigned, [place] [facility] 1.840.114 350.1.13.10 4.2.7.2.686 [id number] [facility]
[2025-03-20] MEDS ORDERED: DIPHENOX/ATROP SULF 1 TAB PO ONE ×2 (02:31→05:17)
[2025-03-20] MEDS ORDERED: NA CHLORIDE 0.9% 1,000 ML ONE (02:31)
[2025-03-20 03:12] LABS: Absolute Basophils 0.1 K/uL (0-0.5); Absolute Eosinophils 0.2 K/uL (0-0.5); Absolute Lymphocytes (CBC) 4.4 K/uL (0.7-4.9); Absolute Monocytes 0.8 K/uL (0.1-1.3); Absolute Neutrophil 5.8 K/uL (1.8-8.0); Basophils % 0.9 % (0-1.3); Eosinophils % 1.7 % (0-4.4); Hematocrit 41.8 % (36.0-45.0); Hemoglobin 14.3 g/dL (12.0-15.0); MCH 35.3 pg (27.0-35.0); MCHC 34.3 g/dL (32.0-36.0); MCV 102.9 fL (80-100); Monocytes % 7.5 % (3.3-12.3); Neutrophils % 50.9 % (41.7-73.7); Platelets 196 thou/uL (152-406); RBC Red Blood Cell Count 4.06 M/uL (3.86-4.86); Red Cell Distribution Width 13.2 % (12.1-15.2)
[2025-03-20 03:20] LABS: Albumin 3.6 g/dL (3.4-5.0); Anion Gap 7.2 mEq/L (5.0-15.0); Bilirubin Total 0.4 mg/dL (0.2-1.0); Globulin 3.6 g/dL (2.3-3.5); Potassium 3.2 mEq/L (3.5-5.1); Protein, Total 7.2 g/dL (6.4-8.2)
[2025-03-20] MEDS ORDERED: LEVALBUTEROL 1.25 MG/3 ML NEB ONE (03:57)
--- NOTE | 2025-03-20 05:18 | EDPHYS ---
Physician Documentation [facility] Name: Marleni Roth Age: 74 yrs Sex: Female : 1950 Arrival Date: 03/20/2025 Time: 01:49 Bed 4 Private MD: ED Physician Moreno Jimenez HPI: 03/20 02:20 This 74 yrs old Female presents to ER via Wheelchair with complaints of Diarrhea. rn 02:20 The patient presents to the emergency department with diarrhea. Onset: The rn symptoms/episode began/occurred 4 day(s) ago. Severity of symptoms: At their worst the symptoms were moderate in the emergency department the symptoms are unchanged. Patient reports 4 days of nonbloody diarrhea. Tolerating p.o. without vomiting. with identical symptoms recently and he has gotten over it without treatment. Patient reports chills but no fever. Patient reports mild lower and mid abdominal pain.. Historical: - Allergies: 02:10 Aspirin; al5 02:10 Codeine; al5 02:10 Erythromycin; al5 02:10 Ibuprofen; al5 02:10 pain relievers; al5 02:10 PENICILLINS; al5 02:10 Tylenol; al5 - Home Meds: 02:10 Eliquis Oral [Active]; Trazodone Oral [Active]; al5 - PMHx: 02:10 Cancer; CHF; COPD; DVT; al5 - PSHx: 02:10 knee replacement; al5 - Immunization history:: Adult Immunizations up to date. - Infectious Disease History:: Denies. - Social history:: Smoking status: Patient reports the use of cigarette tobacco products, smokes 1.5 packs per day. - Family history:: not pertinent. - Hospitalizations: : No recent hospitalization is reported. ROS: 02:22 Constitutional: Negative for fever, positive for chills Cardiovascular: Negative for rn chest pain, palpitations, and edema, Respiratory: Negative for shortness of breath, cough, wheezing, and pleuritic chest pain, Abdomen/GI: Positive for abdominal pain and diarrhea MS/Extremity: Negative for injury and deformity, Skin: Negative for injury, rash, and discoloration, Neuro: Positive for generalized weakness Exam: 02:22 Constitutional: This is a well developed, well nourished patient who is awake, alert, rn and in no acute distress. ENT: Dry mucous membranes Cardiovascular: Regular rate and rhythm. No pulse deficits. Respiratory: No increased work of breathing, no retractions or nasal flaring. Abdomen/GI: Soft, mild mid abdominal tenderness. No rebound or guarding. No peritoneal signs. Vital Signs: 02:09 BP 101 / 83; Pulse 68; Resp 18; Temp 98.3; Pulse Ox 98% on R/A; Weight 60.33 kg; Height al5 5 ft. 9 in. ; 02:30 BP 103 / 67; Pulse 61; Resp 16; Pulse Ox 99% on R/A; al5 03:00 BP 144 / 79; Pulse 63; Resp 18; Pulse Ox 98% ; al5 03:30 BP 134 / 103; Pulse 66; Resp 16; Pulse Ox 99% ; al5 03:43 Pulse 58; Resp 19; Temp 98.3; Pulse Ox 99% ; bm8 03:45 BP 148 / 73; Pulse 67; Resp 20; Temp 98.3; Pulse Ox 98% ; Pain 3/10; bm8 04:00 BP 127 / 97; Pulse 66; Resp 16; Pulse Ox 100% on R/A; al5 04:30 BP 123 / 80; Pulse 68; Resp 16; Pulse Ox 98% ; al5 05:19 bm8 02:09 Body Mass Index 19.64 (60.33 kg, 175.26 cm) al5 03:45 Pain Scale: Adult bm8 05:19 Pt declined last vitals bm8 [place] Coma Score: 03:43 Eye Response: spontaneous(4). Motor Response: obeys commands(6). Verbal Response: bm8 oriented(5). Total: 15. MDM: 01:52 Medical Screening Exam initiated rn 05:16 Differential diagnosis: Nonspecific abd pain, diverticulitis, viral gastroenteritis, rn gastroenteritis, colitis, dehydration, weakness. Data reviewed: vital signs, nurses notes, lab test result(s), radiologic studies, CT scan, and as a result, I will discharge patient. Counseling: I had a detailed discussion with the patient and/or guardian regarding the historical points, exam findings, and any diagnostic results supporting the discharge/admit diagnosis, lab results, radiology results, the need for outpatient follow up, to return to the emergency department if symptoms worsen or persist or if there are any questions or concerns that arise at home. Response to treatment: the patient's symptoms have markedly improved after treatment, the patient's condition has returned to base line, the patient is now symptom free, patient is well hydrated. and as a result, I will discharge patient. Special discussion: I discussed with the patient/guardian in detail that at this point there is no indication for admission to the hospital. It is understood, however, that if the symptoms persist or worsen the patient needs to return immediately for re-evaluation. ED course: Patient feels much better, repeatedly asking to be discharged. Ambulatory around emergency room and does not feel weak or lightheaded anymore. CT abdomen pelvis without acute findings. I have personally reviewed all of the results, including but not limited to blood tests and imaging deemed necessary to safely discharge this patient at this time. All results given to and printed out for patient. I personally went over all the results with the patient and answered all questions. Patient will follow-up with PCP and or specialist as discussed. Return precautions given and understood.. 03/20 02:16 Order name: CBC with Diff; Complete Time: 03:26 rn 03/20 02:16 Order name: CMP; Complete Time: 03:26 rn 03/20 02:16 Order name: Lipase; Complete Time: 03:26 rn 03/20 02:16 Order name: CT Abd/Pelvis - IV Contrast Only rn 03/20 02:16 Order name: IV Saline Lock; Complete Time: 02:58 rn 03/20 02:16 Order name: Labs collected and sent; Complete Time: 02:58 rn Administered Medications: 02:21 CANCELLED (Duplicate Order): ns 0.9% 1000 ml IV at 1 bolus Per protocol; to be given as rn a bolus over 60 minutes 02:40 Drug: Diphenoxylate-Atropine PO 1 tabs PO once Route: PO; al5 05:20 Follow up: Response: No adverse reaction bm8 02:58 Drug: NS 0.9% IV 500 ml 500 ml IV at 1 bolus once; to be given as a bolus over 30 al5 minutes Volume: 500 ml; Route: IV; Rate: 1 bolus; Site: left antecubital; 05:20 Follow up: Response: No adverse reaction; IV Status: Completed infusion bm8 04:01 Drug: Levalbuterol Inhalation 1.25 mg Inhalation once Route: Inhalation; bm8 05:20 Follow up: Response: No adverse reaction bm8 05:18 Drug: Diphenoxylate-Atropine PO 1 tabs PO once Route: PO; al5 05:20 Follow up: Response: No adverse reaction bm8 Disposition Summary: 03/20/25 05:17 Discharge Ordered Notes: Location: Home rn Problem: new rn Symptoms: have improved rn Condition: Stable rn Diagnosis - Diarrhea, unspecified rn - Weakness rn - Dehydration rn Followup: rn - With: Private Physician - When: As needed - Reason: Recheck today's complaints, Re-evaluation by your physician Discharge Instructions: - Discharge Summary Sheet rn - Dehydration, Adult rn - Diarrhea, Adult rn Forms: - Medication Reconciliation Form rn - Antibiotic orthopedic rn - Prescription Opioid Use rn - Patient Portal Instructions rn - Leadership Thank You Letter rn Signatures: Dispatcher [employer] Moreno Phelps MD MD rn McDonald, Brad RN RN bm8 Alecia Landers RN RN al5 Corrections: (The following items were deleted from the chart) 02:16 02:10 Home Meds: diazepam Oral; al5 al5 02:16 02:10 Home Meds: Morphine Oral; al5 al5 02:21 02:16 NS 0.9% IV 1000 ml IV at 1 bolus Per protocol; to be given as a bolus over 60 rn minutes ordered. rn
--- NOTE | 2025-03-20 05:18 | ER ---
Nurse's Notes [facility] Name: Marleni Roth Age: 74 yrs Sex: Female : 1950 Arrival Date: 03/20/2025 Time: 01:49 Bed 4 Private MD: Diagnosis: Diarrhea, unspecified;Weakness;Dehydration Presentation: 03/20 02:09 Chief complaint: Patient states: c/o abdominal pain and diarrhea x4 days. Coronavirus al5 screen: At this time, the client does not indicate any symptoms associated with coronavirus-19. Ebola Screen: No symptoms or risks identified at this time. Initial Sepsis Screen: Does the patient meet any 2 criteria? No. Patient's initial sepsis screen is negative. Does the patient have a suspected source of infection? No. Patient's initial sepsis screen is negative. Risk Assessment: Do you want to hurt yourself or someone else? Patient reports no desire to harm self or others. Onset of symptoms was March 16, 2025. 02:09 Method Of Arrival: Wheelchair al5 02:09 Acuity: LUCINDA 3 al5 Triage Assessment: 02:10 General: Appears in no apparent distress. uncomfortable, slender, well groomed, al5 Behavior is calm, cooperative. Pain: Complains of pain in abdomen. EENT: No signs and/or symptoms were reported regarding the EENT system. Neuro: Level of Consciousness is awake, alert, obeys commands, Oriented to person, place, time, situation. Cardiovascular: Capillary refill < 3 seconds Patient's skin is warm and dry. Respiratory: Airway is patent Respiratory effort is even, unlabored, Respiratory pattern is regular, symmetrical. GI: Abdomen is flat, non-distended, Reports lower abdominal pain, upper abdominal pain, diarrhea. : No signs and/or symptoms were reported regarding the genitourinary system. Derm: Skin is intact, is healthy with good turgor, Skin is pink, warm \T\ dry. normal. Musculoskeletal: No signs and/or symptoms reported regarding the musculoskeletal system. Historical: - Allergies: 02:10 Aspirin; al5 02:10 Codeine; al5 02:10 Erythromycin; al5 02:10 Ibuprofen; al5 02:10 pain relievers; al5 02:10 PENICILLINS; al5 02:10 Tylenol; al5 - Home Meds: 02:10 Eliquis Oral [Active]; Trazodone Oral [Active]; al5 - PMHx: 02:10 Cancer; CHF; COPD; DVT; al5 - PSHx: 02:10 knee replacement; al5 - Immunization history:: Adult Immunizations up to date. - Infectious Disease History:: Denies. - Social history:: Smoking status: Patient reports the use of cigarette tobacco products, smokes 1.5 packs per day. - Family history:: not pertinent. - Hospitalizations: : No recent hospitalization is reported. Screenin:18 [facility] ED Fall Risk Assessment (Adult) History of falling in the last 3 months, al5 including since admission No falls in past 3 months (0 pts) Confusion or Disorientation No (0 pts) Intoxicated or Sedated No (0 pts) Impaired Gait Yes (1 pt) Mobility Assist Device Used Yes (1 pt) Altered Elimination No (0 pt) Score/Fall Risk Level 0 - 2 = Low Risk Oriented to surroundings, Maintained a safe environment, Hourly rounding (assess needs \T\ fall precautionary measures) done. Abuse screen: Denies threats or abuse. Denies injuries from another. Nutritional screening: No deficits noted. Tuberculosis screening: No symptoms or risk factors identified. Assessment: 02:18 Reassessment: see triage assessment. al5 03:43 Reassessment: Patient appears in no apparent distress at this time. No changes from bm8 previously documented assessment. Patient and/or family updated on plan of care and expected duration. Pain level reassessed. Patient is alert, oriented x 3, equal unlabored respirations, skin warm/dry/pink. 04:00 Reassessment: provider informed of pt's increased work of breathing and her normal bm8 treatments at home. New orders received and carried out. Respiratory: Reports shortness of breath labored breathing Breath sounds with wheezes bilaterally. 05:19 Reassessment: Patient appears in no apparent distress at this time. Patient and/or bm8 family updated on plan of care and expected duration. Pain level reassessed. Patient is alert, oriented x 3, equal unlabored respirations, skin warm/dry/pink. Patient denies pain at this time. Patient states feeling better. Patient states symptoms have improved. 05:20 Respiratory: Airway is patent Respiratory effort is even, unlabored, Respiratory bm8 pattern is regular, symmetrical, Breath sounds are clear bilaterally. Vital Signs: 02:09 BP 101 / 83; Pulse 68; Resp 18; Temp 98.3; Pulse Ox 98% on R/A; Weight 60.33 kg; Height al5 5 ft. 9 in. ; 02:30 BP 103 / 67; Pulse 61; Resp 16; Pulse Ox 99% on R/A; al5 03:00 BP 144 / 79; Pulse 63; Resp 18; Pulse Ox 98% ; al5 03:30 BP 134 / 103; Pulse 66; Resp 16; Pulse Ox 99% ; al5 03:43 Pulse 58; Resp 19; Temp 98.3; Pulse Ox 99% ; bm8 03:45 BP 148 / 73; Pulse 67; Resp 20; Temp 98.3; Pulse Ox 98% ; Pain 3/10; bm8 04:00 BP 127 / 97; Pulse 66; Resp 16; Pulse Ox 100% on R/A; al5 04:30 BP 123 / 80; Pulse 68; Resp 16; Pulse Ox 98% ; al5 05:19 bm8 02:09 Body Mass Index 19.64 (60.33 kg, 175.26 cm) al5 03:45 Pain Scale: Adult bm8 05:19 Pt declined last vitals bm8 [place] Coma Score: 03:43 Eye Response: spontaneous(4). Motor Response: obeys commands(6). Verbal Response: bm8 oriented(5). Total: 15. ED Course: 01:52 Patient arrived in ED. [email or web address] 01:52 Moreno Jimenez MD is Attending Physician. rn 02:09 Alecia Landers RN is Primary Nurse. al5 02:10 Triage completed. al5 02:17 Arm band placed on right wrist. Patient placed in the treatment room, in view of staff al5 members, on pulse oximetry. 02:19 Patient has correct armband on for positive identification. Placed in gown. Bed in low al5 position. Call light in reach. Side rails up X2. Provided Education on: plan of care. 02:19 No provider procedures requiring assistance completed. al5 02:58 Inserted saline lock: 20 gauge in left antecubital area, using aseptic technique. Blood al5 collected. Flushed with 10 mL NS. 03:40 CT Abd/Pelvis - IV Contrast Only In Process Unspecified. EDMS 04:01 IV discontinued, intact, bleeding controlled, No redness/swelling at site. Pressure bm8 dressing applied, pt's IV infiltrated post CT. Administered Medications: 02:21 CANCELLED (Duplicate Order): ns 0.9% 1000 ml IV at 1 bolus Per protocol; to be given as rn a bolus over 60 minutes 02:40 Drug: Diphenoxylate-Atropine PO 1 tabs PO once Route: PO; al5 05:20 Follow up: Response: No adverse reaction bm8 02:58 Drug: NS 0.9% IV 500 ml 500 ml IV at 1 bolus once; to be given as a bolus over 30 al5 minutes Volume: 500 ml; Route: IV; Rate: 1 bolus; Site: left antecubital; 05:20 Follow up: Response: No adverse reaction; IV Status: Completed infusion bm8 04:01 Drug: Levalbuterol Inhalation 1.25 mg Inhalation once Route: Inhalation; bm8 05:20 Follow up: Response: No adverse reaction bm8 05:18 Drug: Diphenoxylate-Atropine PO 1 tabs PO once Route: PO; al5 05:20 Follow up: Response: No adverse reaction bm8 Medication: 02:18 VIS not applicable for this client. al5 Outcome: 05:17 Discharge ordered by . rn 05:21 Discharged to home ambulatory, bm8 05:21 Condition: stable 05:21 Discharge instructions given to patient, family, Instructed on discharge instructions, follow up and referral plans. Demonstrated understanding of instructions, follow-up care, 05:22 Patient left the ED. bm8 Signatures: Dispatcher [employer] EDMI Moreno Jimenez MD MD rn Jeffries, Jennifer [email or web address] Jarod Rothman RN RN bm8 Alecia Landers RN RN al5 Corrections: (The following items were deleted from the chart) 02:16 02:10 Home Meds: diazepam Oral; al5 al5 02:16 02:10 Home Meds: Morphine Oral; al5 al5 05:21 05:19 Reassessment: Patient appears in no apparent distress at this time. Patient bm8 and/or family updated on plan of care and expected duration. Pain level reassessed. Patient is alert, oriented x 3, equal unlabored respirations, skin warm/dry/pink. Patient denies pain at this time. Patient states feeling better. Patient states symptoms have improved. bm8
[2025-03-20 05:36] VITALS: TEMP 98.3
[2025-03-20 05:52] VITALS: BP 123/80; O2SAT 98
--- NOTE | 2025-03-20 06:51 | RAD REPORT ---
CLINICAL HISTORY: Diarrhea. COMPARISON: CT Abdomen Pelvis 11/08/2017. TECHNIQUE: CT ABDOMEN PELVIS WITH IV CONTRAST on 03/20/2025 2:16 AM CDT This exam was performed according to our departmental dose-optimization program, which includes autom ated exposure control, adjustment of the mA and/or kV according to patient size and/or use of iterative reconstruction technique. FINDINGS: Posterior medial left lower lobe pulmonary nodule measures 7 mm. Abdomen: The liver is normal in appearance. There is no biliary dilatation. Gallbladder is decompress ed. The pancreas and spleen are normal in appearance. The adrenal glands and kidneys are unremarkable. 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 Aortobifemoral bypass graft is patent. There is n o free air. There is no retroperitoneal adenopathy. Pelvis: There is no bowel obstruction. Urinary bladder is unremarkable. There is no free fluid. Hyste rectomy was performed. Appendix is not clearly seen. Skeleton: There are no acute osseous findings. No suspicious bony lesions. IMPRESSION: No acute inflammatory process. Left solid pulmonary nodule measuring 7 mm. Per Fleischner Society Guidelines, recommend a non-contra st Chest CT at 6-12 months. If patient is high risk for malignancy, consider an additional non-contrast Chest CT at 18-24 months. If patient is low risk for malignancy, non-contrast Chest CT a t 18-24 months is optional. These guidelines do not apply to immunocompromised patients and patients with cancer. Follow up in patients with significant comorbidities as clinically warranted. F or lung cancer screening, adhere to Lung-RADS guidelines. Reference: Radiology. 2017; 284(1):228-43. Electronically signed by: Prince Otero MD 03/20/2025 05:06 AM CDT Due to temporary technical issues with the PACS/Well reporting system, reports are being evangelina d by the in-house radiologist without review as a courtesy to ensure prompt reporting the interpreting radiologist is fully responsible for the content of the report. Transcribed Date/Time: 03/20/2025 6:50 AM
== END 2025-03-20 05:22 | disposition home or self-care (01) ==
LOC: ER 01:49
DX: E86.0 Dehydration (principal); R53.1 Weakness; F17.210 Nicotine dependence, cigarettes, uncomplicated; Z86.718 Personal history of other venous thrombosis and embolism; Z79.01 Long term (current) use of anticoagulants
CPT/HCPCS: 96361; 85025; 36415; 83690; 80053; 74177; 96360; 99285; Q9967; J7614; J7030

== ENCOUNTER 2025-09-02 19:02 | Inpatient (IN) | payer OTHER ==
--- OUTSIDE RECORDS SUMMARY | 2025-09-02 19:07 | XMS REPORT | Continuity of Care Document ---
Author Name Unknown Address [address] [facility] [address] [place] [address] Organization [facility] ID Address [address] [facility] [address] [place] [address] Care Team Providers Care Chemical Inspector Name Role Phone PCP, PATIENT DOES NOT HAVE A Primary Care Physic martín Unavailable Donna Powers Attending Clinician Unavailable ANTHONY CONNER Attending Clinician Unavailable Anthony Conner MD Attending Clinician [phone] Silverio Bardales MD Attending Clinician [phone] Doctor Unassigned, [place] Attending Clinician U Angélica Alejandre MD Attending Clinician [phone] ANGÉLICA SAMS Attending Clinician UnavailSabiha Juárez Attending Clinician [phone] SABIHA ETIENNE Attending Clinician Unavailable Jacinta Monk LCSW Attending Clinician [phone] SITA MARTINEZ Attending Clinician Unavaila ble Lab, Ang - Db Attending Clinician Unavailable Ogweno_B Attending Clinician Unavailable Ogweno_B Admitting Clinician Unavailable Payers Payer Name Policy Type Policy Number Effective Date Expirati on Date Source HUMAN MEDICARE [id number] 2024 00:00:00 [facility] (MEDICARE REPLACEMENT HMO) [id number] 2021 00:00:00 MEDICARE PART A \T\ B [id number] 2009 00:00:00 [employer] [id number] 2019 00:00:00 Problems Condition Name Condition Details Condition Category Status Onset Date Resolution Date Last Treatment Date Treating Clinician Comments Source Left wrist fracture Left wrist fracture Disease Active 0 1- 00:00: 00 [facility] Left wrist fracture Left wrist fracture Disease Active 0 - 00:00: 00 [facility] Allergies, Adverse Reactions, Alerts Allergy Name Allergy Type Status Severity Reaction(s) Onset Date Inactive Date Treating Clinician Comments Source ERYTHROM YCIN ETHYLSUC CINATE DRUG INGREDI Active Anaphylaxis 0 - 00:00: 00 [facility] IBUPROFE N DRUG INGREDI Active Anaphylaxis 0 - 00:00: 00 [facility] ACETAMIN OPHEN-CO DEINE DRUG Active Anaphylaxis 0 - 00:00: 00 [facility] MACROLID E ANTIBIOT ICS Drug Class Active Anaphylaxis 0 - 00:00: 00 [facility] Erythrom ycin Ethylsuc cinate Propensi ty to adverse reaction s Active Anaphylaxis 0 -13 00:00: 00 [facility] Ibuprofe n Propensi ty to adverse reaction s Active Anaphylaxis 0 -13 00:00: 00 [facility] Macrolid e Antibiot ics Propensi ty to adverse reaction s Active Anaphylaxis 0 -13 00:00: 00 [facility] Acetamin ophen-Co deine Propensi ty to adverse reaction s Active Anaphylaxis 0 1-13 00:00: 00 [facility] ACETAMIN OPHEN DRUG INGREDI Active Anaphylaxis 2020-0 2-03 00:00: 00 [facility] ASPIRIN DRUG INGREDI Active Anaphylaxis 2020-0 2-03 00:00: 00 [facility] CODEINE DRUG INGREDI Active Anaphylaxis 2020-0 2-03 00:00: 00 [facility] Acetamin ophen Propensi ty to adverse reaction s Active Anaphylaxis 2020-0 2-03 00:00: 00 [facility] Aspirin Propensi ty to adverse reaction s Active Anaphylaxis 2020-0 2-03 00:00: 00 [facility] Codeine Propensi ty to adverse reaction s Active Anaphylaxis 0 2-03 00:00: 00 [facility] PENICILL IN DRUG INGREDI Active Anaphylaxis 0 04-24 00:00: 00 [facility] Penicill in Propensi ty to adverse reaction s Active Anaphylaxis 0 04-24 00:00: 00 [facility] MEPERIDI NE DRUG INGREDI Active High Rash 0 17 00:00: 00 [facility] Meperidi ne Propensi ty to adverse reaction s Active Rash 0 04-11 00:00: 00 [facility] HYDROCOD ONE DRUG INGREDI Active ITCHING 0 08-05 00:00: 00 [facility] Hydrocod one Propensi ty to adverse reaction s Active Rash 0 08-05 00:00: 00 [facility] PENTAZOC INE LACTATE DRUG INGREDI Active High Anaphylaxis 0 3- 00:00: 00 [facility] TETRACYC LINE DRUG INGREDI Active Anaphylaxis 0 3-03 00:00: 00 [facility] Pentazoc ine Lactate Propensi ty to adverse reaction s Active Rash 0 3- 00:00: 00 [facility] Tetracyc line Propensi ty to adverse reaction s Active Anaphylaxis 0 3-03 00:00: 00 [facility] Social History Social Habit Start Date Stop Date Quantity Comments Source [facility] of [facility] use Smokes tobacco daily [facility] Exposure to SARS-CoV-2 (event) 2023-01-15 00:00:00 2023-01-25 09:59:00 Not sure [facility] History of Social function 2022-12-08 00:00:00 2022-12-08 00:00:00 [facility] Sex assigned at 1950 00:00:00 1950 00:00:00 [facility] Smoking Status Start Date Stop Date Source Unknown if ever smoked [facility] Smokes tobacco daily 2022-12-28 00:00:00 [facility] Medications Ordered Medication Name Filled Medication Name Start Date Stop Date Current Medication? Ordering Clinician Indication Dosage Frequency Signature (SIG) Comments Components Source traZODone 100 mg tablet 02-19 08:42: 58 Yes 100mg Take 1 tablet by mouth 4 (four) times daily. [facility] oxyCODONE 5 mg TbOr 02-19 08:42: 11 02-19 00:00 :00 No Take by mouth. Indication s: 4 a day [facility] DIAZEPAM ORAL 02-19 08:41: 55 02-19 00:00 :00 No Take by mouth. [facility] Tramadol 100 mg tablet 02-19 08:41: 36 02-19 00:00 :00 No Take by mouth. Indication s: 4 a day [facility] morphine 15 mg TRer 02-19 08:41: 30 02-19 00:00 :00 No Take by mouth. [facility] oxyCODONE 5 mg TbOr 02-19 08:41: 14 Yes 5mg Take 5 mg by mouth 4 (four) times daily. [facility] morphine 100 mg TR12 02-19 08:39: 19 Yes 50mg Take 50 mg by mouth in the morning and 50 mg in the evening. [facility] diazePAM 5 mg tablet 02-19 08:38: 04 Yes 5mg Take 1 tablet by mouth as needed. [facility] gabapentin 300 mg capsule 02-19 08:37: 09 Yes 300mg Take 1 capsule by mouth in the morning and 1 capsule in the evening. [facility] pravastatin 80 mg tablet 02-19 08:36: 21 Yes 80mg Take 1 tablet by mouth in the morning. [facility] Docusate Sodium 50 mg/15 mL Syrp 02-19 08:36: 01 Yes 50mg Take 50 mg by mouth in the morning and 50 mg in the evening. [facility] apixaban 5 mg tablet 2023-0 3-27 08:35: 19 Yes 5mg Take 1 tablet by mouth in the morning. [facility] traMADoL 50 mg tablet 2022-0 1-25 00:00: 00 12-28 05:59 :00 No 4647 50mg Take 1 tablet by mouth every 6 (six) hours as needed for Pain (scale 4-6) for up to 7 days. Indication s: acute pain [facility] Tramadol 100 mg tablet 2019-0 2-03 21:00: 22 Yes Take by mouth. Indication s: 4 a day [facility] morphine 15 mg TRer 2020-0 2-03 21:00: 21 Yes Take by mouth. [facility] oxyCODONE 5 mg TbOr 2019-0 2-03 21:00: 21 Yes Take by mouth. Indication s: 4 a day [facility] DIAZEPAM ORAL 2019-0 2-03 21:00: 21 Yes Take by mouth. [facility] Tramadol 100 mg tablet 2019-0 2-03 15:00: 22 Yes Take by mouth. Indication s: 4 a day [facility] morphine 15 mg TRer 2020-0 2-03 15:00: 21 Yes Take by mouth. [facility] oxyCODONE 5 mg TbOr 2019-0 2-03 15:00: 21 Yes Take by mouth. Indication s: 4 a day [facility] DIAZEPAM ORAL 2019-0 2-03 15:00: 21 Yes Take by mouth. [facility] Vital Signs Vital Name Observation Time Observation Value Comments S ource Systolic blood pressure 2024-09-25 19:32:00 91 mm[Hg] asymptomatic- provider notified. [facility] Diastolic blood pressure 2024-09-25 19:32:00 57 mm[Hg] asymptomatic- provider notified. [facility] Heart rate 2024-09-25 19:32:00 65 /min [facility] Body temperature 2024-09-25 19:32:00 36.56 Guerita [facility] Body height 2024-09-25 19:32:00 172.7 cm [facility] Body weight 2024-09-25 19:32:00 64.864 kg [facility] BMI 2024-09-25 19:32:00 21.74 kg/m2 [facility] Oxygen saturation in Arterial blood by Pulse oximetry 2024-09-25 19:32:00 96 /min [facility] Body height 2023-01-25 16:03:00 172.7 cm [facility] Body weight 2023-01-25 16:03:00 78.472 kg [facility] BMI 2023-01-25 16:03:00 26.30 kg/m2 [facility] Body height 2022-12-28 20:40:00 172.7 cm [facility] Body weight 2022-12-28 20:40:00 78.472 kg [facility] BMI 2022-12-28 20:40:00 26.30 kg/m2 [facility] Systolic blood pressure 2022-12-08 16:00:00 114 mm[Hg] [facility] Diastolic blood pressure 2022-12-08 16:00:00 75 mm[Hg] [facility] Heart rate 2022-12-08 16:00:00 75 /min [facility] Body height 2022-12-08 16:00:00 172.7 cm [facility] Body weight 2022-12-08 16:00:00 78.881 kg [facility] BMI 2022-12-08 16:00:00 26.44 kg/m2 [facility] Oxygen saturation in Arterial blood by Pulse oximetry 2022-12-08 16:00:00 94 /min [facility] Systolic blood pressure 2019-12-29 20:53:00 105 mm[Hg] [facility] Diastolic blood pressure 2019-12-29 20:53:00 72 mm[Hg] [facility] Heart rate 2019-12-29 20:53:00 97 /min [facility] Body weight 2019-12-29 20:53:00 77.111 kg [facility] Procedures Procedure Date / Time Performed Performing Clinician Source PATIENT QUESTIONNAIRE 2023-02-26 05:01:00 Doctor Unassigned, [place] [facility] INSURANCE CORRESPONDENCE 2023-02-01 06:01:00 Doc tor Unassigned, [place] [facility] OPERATIVE NOTES 2022-12-20 06:01:00 Doctor Unass igned, [place] [facility] ASSIGNMENT OF BENEFITS 2022-12-08 15:08:43 Docto r Unassigned, [place] [facility] ASSIGNMENT OF BENEFITS 2019-12-29 20:45:41 Docto r Unassigned, [place] [facility] Encounters Start Date/Time End Date/Time Encounter Type Admission Type Attending [facility] Care Facility Care Department Encounter ID Source 2021-12-21 14:36:40 Outpatient Donna Powers [facility] [id number] [facility] 2021-12-21 14:36:16 Outpatient Donna Powers [facility] [id number] [facility] 2024-12-11 13:45:00 2024-12-11 13:45:00 Outpatient R ANTHONY CONNER [facility] [id number] [facility] 2024-09-25 00:00:00 2024-09-25 16:13:[address] [facility] [id number] 350.1.13.10 4.2.7.2.686 [id number] [facility] 2024-09-25 14:45:00 2024-09-25 15:11:28 Outpatient R MARILEE CONNERIQ [facility] [id number] [facility] 2024-09-25 14:45:00 2024-09-25 15:11:[address] [facility] [id number] 350.1.13.10 4.2.7.2.686 [id number] [facility] 2024-09-12 00:00:00 2024-09-12 00:00:00 Outpatient R [facility] [id number] [facility] 2024-09-03 00:00:00 2024-09-03 14:22:56 Letter (Out) Silverio Bardales [facility] (JESIKA) 1.2840.114 350.1.13.10 4.2.7.2.686 [id number] [facility] 2023-02-26 00:00:00 2023-02-26 00:00:00 Orders Only Doctor Unassigned, [place] [facility] 1.2840.114 350.1.13.10 4.2.7.2.686 [id number] [facility] 2023-02-19 00:00:00 2023-02-19 00:00:00 Telephone Angélica Sams [facility] 1.2840.114 350.1.13.10 4.2.7.2.686 [id number] [facility] 2023-02-01 00:00:00 2023-02-01 00:00:00 Orders Only Doctor Unassigned, [place] [facility] 1.2840.114 350.1.13.10 4.2.7.2.686 [id number] [facility] 2023-01-25 10:04:42 2023-01-25 23:59:00 Outpatient R ANGÉLICA SAMS [facility] [id number] [facility] 2023-01-25 10:30:00 2023-01-25 10:45:00 Office Visit Jaimie [facility] 1.2840.114 350.1.13.10 4.2.7.2.686 [id number] [facility] 2022-12-28 14:51:36 2022-12-28 23:59:00 Outpatient R JAIMIE [facility] [id number] [facility] 2022-12-28 14:45:00 2022-12-28 15:00:00 Office Visit Jaimie [facility] 1..840.114 350.1.13.10 4.2.7.2.686 [id number] [facility] 2022-12-27 14:00:00 2022-12-27 14:00:00 Outpatient SABIHA LUU [facility] [id number] [facility] 2022-12-26 00:00:00 2022-12-26 00:00:00 Telephone Angélica Sams [facility]?JOSEPH[facility] 1.840.114 350.1.13.10 4.2.7.2.686 [id number] [facility] 2022-12-21 00:00:00 2022-12-21 00:00:00 Patient Outreach Jacinta Monk [facility] 1.840.114 350.1.13.10 4.2.7.2.686 [id number] [facility] 2022-12-20 00:00:00 2022-12-20 00:00:00 Outpatient ANGÉLICA [facility] [id number] [facility] 2022-12-20 00:00:00 2022-12-20 00:00:00 Telephone Angélica Sams [facility] 1.840.114 350.1.13.10 4.2.7.2.686 [id number] [facility] 2022-12-20 00:00:00 2022-12-20 00:00:00 Orders Only Doctor Unassigned, [place] [facility] 1.84.114 350.1.13.10 4.2.7.2.686 [id number] [facility] 2022-12-19 15:00:00 2022-12-19 15:00:00 Outpatient SITA JESSICA [facility] [id number] [facility] 2022-12-18 15:45:00 2022-12-18 16:00:00 [place] Visit Lab, John - Db Angélica Sams [facility] 1.84114 350.1.13.10 4.2.7.2.686 [id number] [facility] 2022-12-18 15:45:00 2022-12-18 15:45:00 Outpatient R ANGÉLICA SAMS [facility] [id number] [facility] 2022-12-18 00:00:00 2022-12-18 00:00:00 Telephone Angélica Sams [facility] 1.84.114 350.1.13.10 4.2.7.2.686 [id number] [facility] 2022-12-18 00:00:00 2022-12-18 00:00:00 Telephone Angélica Sasm [facility] 1.84114 350.1.13.10 4.2.7.2.686 [id number] [facility] 2022-12-08 09:00:00 2022-12-08 10:36:33 Outpatient R SABIHA ETIENNE [facility] [id number] [facility] 2022-12-08 09:00:00 2022-12-08 10:36:33 Office Visit Sabiha Etienne [facility] 1.114 350.1.13.10 4.2.7.2.686 [id number] [facility] 2022-12-08 00:00:00 2022-12-08 00:00:00 Orders Only Doctor Unassigned, [place] [facility] 1.114 350.1.13.10 4.2.7.2.686 [id number] [facility] 2022-12-08 00:00:00 2022-12-08 00:00:00 Telephone Sabiha Etienne [facility] 1.2840.114 350.1.13.10 4.2.7.2.686 [id number] [facility] 2022-12-07 00:00:00 2022-12-07 00:00:00 Telephone Angélica Sams [facility] 1..114 350.1.13.10 4.2.7.2.686 [id number] [facility] 2022-08-11 10:20:00 2022-08-11 10:20:00 Outpatient R [facility] [id number] [facility] 2019-12-29 15:14:38 2019-12-29 23:59:00 Outpatient O ANGÉLICA SAMS [facility] [id number] [facility] 2019-12-29 15:14:00 2019-12-29 23:59:00 Hospital Encounter Angélica Sams [facility] [place] 1..114 350.1.13.10 4.2.7.2.686 [id number] [facility] 2019-12-29 14:48:23 2019-12-29 15:36:06 Office Visit Angélica Sams [facility] [place] 1.2840.114 350.1.13.10 4.2.7.2.686 [id number] [facility] 2019-12-29 00:00:00 2019-12-29 00:00:00 Orders Only Doctor Unassigned, [place] [facility] 1.840.114 350.1.13.10 4.2.7.2.686 [id number] [facility]
--- NOTE | 2025-09-02 20:39 | RAD REPORT ---
EXAM: Chest Single View HISTORY: 75 years Female altered mental status COMPARISON: 08/07/2025 FINDINGS: LUNGS/PLEURA: Blunting of the left costophrenic angle. Emphysema. No edema or consolidation. CARDIAC/MEDIASTINUM: The cardiac silhouette is within normal limits. UPPER ABDOMEN: No significant abnormality. BONES: No acute abnormality. LINES/TUBES/OTHER: N/A IMPRESSION: No evidence of acute cardiopulmonary disease.
--- NOTE | 2025-09-02 22:05 | RAD REPORT ---
EXAMINATION: Head Brain Wo Cont CLINICAL INDICATION: Female, 75 years old.MENTAL STATUS CHANGE TECHNIQUE: Axial CT images from the skull base to the vertex without intravenous contrast. Coronal an d sagittal reformatted images were created from the data set. One or more of the following dose reduction techniques were used: Automated exposure control, adjustment of the mA and/or kV according to patient size, and/or iterative reconstruction. Unless otherwise specified, incidental findings do not require dedicated imaging follow-up. [id number]. COMPARISON: No prior exams FINDINGS: INTRACRANIAL: No acute intracranial hemorrhage. No acute large vascular territory infarct. No hydro cephalus. No mass effect or midline shift. 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 VASCULATURE: No visualized abnormalities in the arteries or dural venous sinuses. SCALP/SKULL: No calvarial fracture identified. No acute soft tissue abnormality. SINUSES: Mild bilateral maxillary sinus mucosal thickening. Opacified right sphenoid sinus and polypo id thickening in the right posterior nasal passage. No significant mastoid fluid. IMPRESSION: No acute intracranial abnormality. 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
[2025-09-02 22:08] LABS: PT Prothrombin Time 12.1 SECONDS (10-13.0); PTT, Activated Partial Thromb 29.0 SECONDS (27.2-37.4); Protime INR 1.07
[2025-09-02 22:18] LABS: ALT/SGPT 20 U/L (13-56); AST/SGOT 26 U/L (15-37); Albumin 2.8 g/dL (3.4-5.0); Albumin/Globulin Ratio 0.9 (1.1-1.8); Alkaline Phosphatase 55 U/L (45-117); Anion Gap 6.1 mEq/L (5.0-15.0); BUN Blood Urea Nitrogen 15 mg/dL (7-18); Globulin 3.1 g/dL (2.3-3.5); Glucose Level 87 mg/dL (74-106); Magnesium 2.1 mg/dL (1.6-2.4); Potassium 4.1 mEq/L (3.5-5.1)
[2025-09-02 22:20] LABS: Bilirubin Indirect, Calculated 0.0 mg/dL (0.2-0.8)
[2025-09-02 22:23] LABS: Troponin High Sensitivity 482.6 pg/mL (<58.9)
[2025-09-02 22:26] LABS: Absolute Lymphocytes (CBC) 0.7 K/uL (0.7-4.9); Hematocrit 37.9 % (36.0-45.0); Hemoglobin 12.6 g/dL (12.0-15.0); MCH 34.0 pg (27.0-35.0); MCHC 33.3 g/dL (32.0-36.0); MCV 102.3 fL (80-100); MPV 9.4 fL (7.6-11.3); Nucleated RBC Absolute Count 0.0 (0-0); Nucleated Red Blood Cells % 0.0 % (0-0); RBC Red Blood Cell Count 3.71 M/uL (3.86-4.86); White Blood Count 13.00 thou/uL (4.3-10.9)
[2025-09-02 22:52] LABS: Blood O2 Saturation 88.8 % (92.0-98.5)
--- NOTE | 2025-09-03 00:04 | EDPHYS ---
Physician Documentation [facility] Name: Marleni Roth Age: 75 yrs Sex: Female : 1950 Arrival Date: 09/02/2025 Time: 19:02 Bed 2 Private MD: ED Physician Chris Adam HPI: 09/02 19:35 This 75 yrs old Female presents to ER via EMS with complaints of Altered Mental Status. cp 19:35 The patient presents with decreased mental status, decreased responsiveness. Onset: The cp symptoms/episode began/occurred today, last normal was yesterday according to guardian. reports patient awoke today at 0700 and was drowsy. guardian reports patient went back to sleep at about 1000 this morning and has been difficult to arouse since. 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 Patient's baseline: Neuro: alert and fully oriented, Motor: no deficits, Ambulation: walks without assistance, Speech: normal. Historical: - Allergies: 21:28 Aspirin; tb4 21:28 Erythromycin; tb4 21:28 Ibuprofen; tb4 21:28 pain relievers; tb4 21:28 PENICILLINS; tb4 21:28 Tylenol; tb4 21:28 Codeine; tb4 - Home Meds: 09/03 02:15 morphine 15 mg oral tablet every 12 hours [Active]; diazepam 5 mg oral tablet 1 tab tb4 four times a day [Active]; Eliquis 5 mg oral tablet 1 tab 2 times per day [Active]; trazodone 100 mg oral tablet 4 tabs every day at bedtime [Active]; pravastatin 80 mg oral tablet 1 tab daily [Active]; - PMHx: 09/02 21:28 Cancer; CHF; DVT; COPD; tb4 - PSHx: 21:28 knee replacement; tb4 - Immunization history:: Adult Immunizations unknown. - Infectious Disease History:: Denies. - Social history:: Smoking status: unknown. ROS: 19:40 Constitutional: Negative for fever, cp 19:40 Cardiovascular: Negative for chest pain, cp 19:40 Respiratory: Negative for cough, shortness of breath, wheezing, 19:40 Abdomen/GI: Negative for abdominal pain, vomiting, diarrhea, constipation, 19:40 Neuro: Positive for altered mental status, 19:40 Unable to obtain ROS due to altered mental status, cp Exam: 19:45 Constitutional: The patient appears in no acute distress, non-diaphoretic, non-toxic, cp well developed, well nourished, 19:45 Head/Face: Normocephalic, atraumatic. cp 19:45 Eyes: Pupils: constricted, bilaterally, Conjunctiva: normal, no exudate, no injection, Sclera: no appreciated abnormality, Lids and lashes: appear normal, bilaterally, 19:45 ENT: External ear(s): are unremarkable, Ear canal(s): are normal, clear, TM's: dullness, bilaterally, Nose: is normal, Mouth: Lips: dry, Oral mucosa: moist, Posterior pharynx: Airway: no evidence of obstruction, patent, 19:45 Neck: ROM/movement: Meningeal signs: are not present, 19:45 Chest/axilla: Inspection: normal, Palpation: is normal, no crepitus, no tenderness, 19:45 Cardiovascular: Rate: normal, Rhythm: regular, Edema: is not appreciated, JVD: is not appreciated, 19:45 Respiratory: the patient does not display signs of respiratory distress, Respirations: shallow respirations, that is mild, Breath sounds: decreased breath sounds, that are mild, throughout, stridor, is not appreciated, wheezing: is not appreciated, 19:45 Abdomen/GI: Inspection: abdomen appears normal, Bowel sounds: active, all quadrants, Palpation: abdomen is soft and non-tender, in all quadrants, 19:45 Back: pain, is absent, 19:45 Skin: cellulitis, is not appreciated, no rash present. 19:45 Neuro: Orientation: to person, Mentation: somnolent, responsive to pain, Motor: moves all fours, no focal deficits, 21:12 ECG was reviewed by the Attending Physician. cp Vital Signs: 19:45 BP 108 / 71; Pulse 87; Resp 19; Pulse Ox 99% on R/A; Pain 0/10; tb4 20:50 BP 108 / 71; Pulse 64; Resp 21; Pulse Ox 100% on R/A; tb4 21:50 BP 97 / 57; Pulse 92; Resp 17; Temp 99.2(A); Pulse Ox 100% on R/A; tb4 22:50 BP 125 / 68; Pulse 78; Resp 19; Pulse Ox 95% on R/A; tb4 23:51 BP 101 / 57; Pulse 92; Resp 17; Pulse Ox 100% on R/A; tb4 09/03 02:00 BP 94 / 50; Pulse 108; Resp 22; Pulse Ox 90% on Non-rebreather mask; kd3 02:30 BP 99 / 84; Pulse 102; Resp 21; Pulse Ox 92% on Non-rebreather mask; kd3 02:46 BP 114 / 72; Pulse 67; Resp 20; Pulse Ox 94% on BiPAP; kd3 02:50 BP 123 / 59; Pulse 68; Resp 18; Pulse Ox 100% on BiPAP; kd3 03:30 BP 115 / 98; Pulse 56; Resp 17; Pulse Ox 99% on BiPAP; kd3 03:34 BP 115 / 98; Pulse 52; Resp 20; Pulse Ox 100% on BiPAP; kb4 05:14 BP 128 / 88; Pulse 56; Resp 19; Pulse Ox 100% on R/A; kd3 06:53 BP 96 / 55; Pulse 56; Resp 17; Pulse Ox 93% on R/A; kd3 18:16 BP 107 / 68; Pulse 60; Resp 18; Temp 97.4; Pulse Ox 100% on R/A; nh2 09/02 19:45 Pain Scale: Non-Verbal tb4 09/02 19:45 No s/s of distress noted tb4 Procedures: 20:05 Peripheral line: by aseptic technique a peripheral line was placed in the right external jugular vein. 09/03 06:08 Central Line: the site was prepped with Betadine, in sterile fashion, a triple lumen tt7 catheter was inserted, in the right femoral vein, in 1 attempts. placement was verified, by blood return, the site was dressed with Tegaderm, using sterile technique, the patient tolerated the procedure, well. MDM: 09/02 19:25 Medical Screening Exam initiated tt7 23:45 I considered the following discharge prescriptions or medication management in the emergency department Medications were administered in the Emergency Department. See JAN. 23:45 Independent interpretation of the following test(s) in the Emergency Department EKG: cp See my EKG interpretation above. Test considered but Not performed: MRI: brain. Care significantly affected by the following chronic conditions: Congestive Heart Failure, Chronic Obstructive Pulmonary Disease, Cancer. Response to treatment: the patient's symptoms have mildly improved after treatment, and as a result, I will admit patient. 09/03 06:05 Differential Diagnosis: CVA, electrolyte abnormality, alcohol intoxication, tt7 hypoglycemia, intracranial bleed, overdose. Data reviewed: vital signs, nurses notes, lab test result(s), EKG, radiologic studies. ED course: 75-year-old female presents with altered mental status and signs/symptoms consistent with opioid overdose, has improvement of her symptoms with Narcan but during her course in the emergency department had relapsing/remitting symptoms, eventually due to recurrent hypotension, unresponsiveness, and acute hypoxic respiratory failure required BiPAP support and continuous Narcan infusion, due to limited vascular access a central access was obtained and patient was admitted to the intensive care unit for further evaluation and treatment, patient also noted to have an elevated troponin and was treated for ACS with antiplatelet therapy. 09/02 19:32 Order name: Basic Metabolic Panel; Complete Time: 23:33 cp 09/02 22:24 Interpretation: Normal except: CL 108; CRE 1.39; GFR 40. cp 09/02 19:32 Order name: CBC with Diff; Complete Time: 22:35 cp 09/02 19:32 Order name: Hepatic Function; Complete Time: 23:33 cp 09/02 22:24 Interpretation: Normal except: IBILI, CALC 0.0; TP 5.9; ALB 2.8; A/G 0.9. cp 09/02 19:32 Order name: High Sensitivity Troponin; Complete Time: 23:33 cp 09/02 22:24 Interpretation: Abnormal: Troponin HS 482.6. cp 09/02 19:32 Order name: Magnesium; Complete Time: 23:33 cp 09/02 19:32 Order name: Protime (+inr); Complete Time: 22:24 cp 09/02 19:32 Order name: Ptt, Activated; Complete Time: 22:24 cp 09/02 19:32 Order name: UDS; Complete Time: :13 cp 09/03 01:18 Interpretation: Normal except: BZO POSITIVE; OPI POSITIVE. cp 09/02 19:32 Order name: UA Rfx John Cult if indicated; Complete Time: :13 cp 09/03 01:14 Interpretation: Normal except: [facility] Extremely Turbid; UBLD 2+; UPROT 1+; URBC 21-50. cp 09/02 19:32 Order name: Lactate w/ 2H reflex if indic.; Complete Time: 22:24 cp 09/02 19:32 Order name: Blood Culture Adult (2) cp 09/02 19:32 Order name: COVID-19 Ag + Flu A+B Ag cp 09/02 22:27 Order name: ABG; Complete Time: 22:55 cp 09/02 22:55 Interpretation: Reviewed. cp 09/02 22:28 Order name: ETOH Level; Complete Time: 23:37 cp 09/02 23:20 Order name: Creatine Phosphokinase; Complete Time: 23:33 EDMS 09/02 23:33 Interpretation: Reviewed. cp 09/03 05:24 Order name: CBC with Automated Diff EDMS 09/03 05:24 Order name: CBC with Automated Diff EDMS 09/03 05:24 Order name: Comprehensive Metabolic Panel EDMS 09/03 05:24 Order name: Comprehensive Metabolic Panel EDMS 09/03 05:24 Order name: Troponin High Sensitivity EDMS 09/03 05:24 Order name: Troponin High Sensitivity EDMS 09/03 05:24 Order name: Troponin High Sensitivity EDMS 09/03 05:24 Order name: Troponin High Sensitivity EDMS 09/03 12:26 Order name: Glucose, Ancillary Testing EDMS 09/03 15:25 Order name: Thyroid Stimulating Hormone EDMS 09/02 19:32 Order name: Stroke CXR 1 View; Complete Time: 22:24 cp 09/02 19:41 Order name: Head Brain Wo Cont CT; Complete Time: 22:24 cp 09/02 22:55 Order name: BIPAP 09/03 08:14 Order name: CT EDMS 09/03 08:15 Order name: CT EDMS 09/03 17:55 Order name: MRI EDMS 09/02 19:32 Order name: EKG; Complete Time: 19:33 cp 09/02 19:32 Order name: Accucheck; Complete Time: 00:42 cp 09/02 19:32 Order name: Cardiac monitoring; Complete Time: 00:42 cp 09/02 19:32 Order name: EKG - Nurse/Tech; Complete Time: 21:22 cp 09/02 19:32 Order name: IV Saline Lock; Complete Time: 00:42 cp 09/02 19:32 Order name: Labs collected and sent; Complete Time: 00:42 cp 09/02 19:32 Order name: NPO; Complete Time: 00:42 cp 09/02 19:32 Order name: O2 Per Protocol; Complete Time: 21:22 cp 09/02 19:32 Order name: O2 Sat Monitoring; Complete Time: 21:22 cp 09/02 19:32 Order name: Mounika; Complete Time: 00:41 cp EC/08 21:12 Rate is 76 beats/min. Rhythm is regular. NV interval is normal. QRS interval is normal. cp QT interval is normal. T waves are Inverted in leads aVL, aVR, V2. Interpreted by me. Reviewed by me. Administered Medications: 22:29 CANCELLED (Physician Discretion): ns 0.9% 500 ml 500 ml IV at 1 bolus once; to be given cp as a bolus over 90 minutes 23:35 CANCELLED (patient altered): [id number] mg PO once cp 09/03 02:51 Drug: Naloxone IVP 1 mg IVP once Route: IVP; Site: right jugular; kd3 03:20 Follow up: Response: No adverse reaction; RASS: Agitated (+2) kd3 02:51 Drug: NS 0.9% IV 1000 ml IV at 1000 ml once; to be given as a bolus over 60 minutes kd3 Route: IV; Rate: 1000 ml; Site: right jugular; 03:20 Follow up: IV Status: Completed infusion; IV Intake: 1000ml kd3 02:51 Drug: Albumin IVPB 25 grams 100 ml IVPB once; (Note: Albumin 25% concentration) Volume: kd3 100 ml; Route: IVPB; Site: right jugular; 03:20 Follow up: IV Status: Completed infusion kd3 03:33 Drug: NARcan IVP 5 mg IVP at 1 mg/hr once Route: IVP; Rate: 1 mg/hr; Site: Other; kb4 05:15 Follow up: Response: No adverse reaction kd3 05:16 Follow up: Response: No adverse reaction; RASS: Alert and Calm (0) kd3 05:14 Drug: Clopidogrel PO 300 mg PO once Route: PO; kd3 07:00 Follow up: Response: No adverse reaction nh2 Disposition: 06:09 Co-signature as Attending Physician, Chris OH reviewed the patient's care tt7 provided by Advanced Practice Provider \T\ agree w/ the diagnosis \T\ care plan. I personally saw the pt \T\ performed a substantive portion of the visit, incldng all aspects of the (History/Exam/Medical Decision Making). 09/04 15:57 Critical Care:. cp 15:58 Chart complete. cp Disposition Summary: 09/03/25 00:04 Hospitalization Ordered Notes: Hospitalization Status: Inpatient Admission cp Provider: Deon Pierce cp Condition: Fair cp Problem: new cp Bed/Room Type: Standard cp Symptoms: have improved(09/03/25 00:04) cp Location: Telemetry/MedSurg (observation)(09/03/25 17:20) 6 Room Assignment: [facility](09/03/25 17:20) [facility] Diagnosis - Altered mental status, unspecified cp - Subsequent non-ST elevation (NSTEMI) myocardial infarction cp Forms: - Medication Reconciliation Form cp - SBAR form cp - Leadership Thank You Letter cp Critical care time excluding procedures: 15:57 Critical care time: Bedside Care: 12 minutes, Consultation: 40 minutes, Family cp Intervention: 5 minutes. Total time: 57 minutes Signatures: Dispatcher [employer] EDMS Rafa Thornton, NHIC PA-C cp Ruthy Freedman, RN RN kd3 Yoly Phan, RN RN vc1 Danni Celis bc6 Sejal Aguilera RN RN kb4 Karen Perkins, RN RN tb4 Chris Adam DO DO tt7 Odell De Luna Jr, RN nh2 Corrections: (The following items were deleted from the chart) 09/02 19:33 19:33 BASIC METABOLIC PANEL+C.LAB.BRZ ordered. EDMS EDMS 19:33 19:33 CBC+H.LAB.BRZ ordered. EDMS EDMS 19:33 19:33 HEPATIC FUNCTION+C.LAB.BRZ ordered. EDMS EDMS 19:33 19:33 Troponin High Sensitivity+C.LAB.BRZ ordered. EDMS EDMS 19:33 19:33 MAGNESIUM+C.LAB.BRZ ordered. EDMS EDMS 19:33 19:33 PROTIME (+INR)+COAG.LAB.BRZ ordered. EDMS EDMS 19:33 19:33 PTT, ACTIVATED+COAG.LAB.BRZ ordered. EDMS EDMS 19:33 19:33 URINE DRUG SCREEN+UC.LAB.BRZ ordered. EDMS EDMS 19:33 19:33 UA Rfx John Cult if indicated+U.LAB.BRZ ordered. EDMS EDMS 19:33 19:33 LACTATE+C.LAB.BRZ ordered. EDMS EDMS 19:33 19:33 BLOOD CULTURE*+BA.LAB.BRZ ordered. EDMS EDMS 19:33 19:33 COVID-19 Ag + Flu A+B Ag+I.LAB.BRZ ordered. EDMS EDMS 19:43 19:33 CT-STROKE BRAIN W/O CONTRAST+CT.RAD.BRZ ordered. EDMS EDMS 19:47 19:30 Head Brain Wo Cont+CT.RAD.BRZ ordered. EDMS EDMS 21:52 19:33 Head Angio+CT.RAD.BRZ ordered. EDMS EDMS 21:52 19:33 Neck Angio+CT.RAD.BRZ ordered. EDMS EDMS 22:29 22:27 NS 0.9% IV 500 ml 500 ml IV at 1 bolus once; to be given as a bolus over 90 cp minutes ordered. cp 23:20 22:30 CREATINE PHOSPHOKINASE+C.LAB.BRZ ordered. EDMS EDMS 23:35 22:28 Clopidogrel PO 300 mg PO once ordered. cp cp 09/03 00:02 00:02 Head Angio+CT.RAD.BRZ ordered. EDMS EDMS 00:02 00:02 Neck Angio+CT.RAD.BRZ ordered. EDMS EDMS 00:04 00:04 are unchanged cp cp 01:15 00:04 Telemetry/MedSurg (Inpatient) cp vc1 01:15 00:04 cp vc1 02:25 08 21:28 Home Meds: Morphine Oral; tb4 tb4 09/03 02:25 09/02 21:28 Home Meds: diazepam Oral; tb4 tb4 09/03 02:25 09/02 21:28 Home Meds: Eliquis Oral; tb4 tb4 09/03 02:25 09/02 21:28 Home Meds: Trazodone Oral; tb4 tb4 09/03 02:25 02:15 Allergies: pravastatin; tb4 tb4 03:21 09/02 19:32 Stroke Swallow Screen ordered. cp kd3 09/03 14:02 01:15 [facility] ER HOLD vc1 bc6 14:02 01:15 ERHOLD- vc1 bc6 14:04 14:02 Intensive Care Unit bc6 bc6 14:04 14:02 6- bc6 bc6 17:20 14:04 [facility] ER HOLD bc6 bc6 17:20 14:04 bc6 bc6
--- NOTE | 2025-09-03 00:04 | ER ---
Nurse's Notes [facility] Name: Marleni Roth Age: 75 yrs Sex: Female : 1950 Arrival Date: 09/02/2025 Time: 19:02 Bed 2 Private MD: Diagnosis: Altered mental status, unspecified;Subsequent non-ST elevation (NSTEMI) myocardial infarction Presentation: 09/02 19:21 Chief complaint: EMS states: Fire department called about patient with altered mental tb4 status. Coronavirus screen: At this time, the client does not indicate any symptoms associated with coronavirus-19. Ebola Screen: No symptoms or risks identified at this time. Initial Sepsis Screen: Does the patient meet any 2 criteria? No. Patient's initial sepsis screen is negative. Does the patient have a suspected source of infection? No. Patient's initial sepsis screen is negative. Risk Assessment: Do you want to hurt yourself or someone else? Patient reports no desire to harm self or others. Onset of symptoms was September 02, 2025. Care prior to arrival: Medication(s) given: Albuterol Neb x 1, Atrovent Neb x 1, 2MG of Narcan IM. Activity prior to arrival: Restless. 19:21 Method Of Arrival: EMS: [facility] tb4 19:21 Acuity: LUCINDA 3 tb4 Triage Assessment: 19:21 General: Appears distressed, Behavior is cooperative, agitated, when touched. Neuro: tb4 Level of Consciousness is lethargic, Oriented to none. Respiratory: Airway is patent Respiratory effort is even, unlabored, Respiratory pattern is regular, symmetrical. Historical: - Allergies: 21:28 Aspirin; tb4 21:28 Erythromycin; tb4 21:28 Ibuprofen; tb4 21:28 pain relievers; tb4 21:28 PENICILLINS; tb4 21:28 Tylenol; tb4 21:28 Codeine; tb4 - Home Meds: 09/03 02:15 morphine 15 mg oral tablet every 12 hours [Active]; diazepam 5 mg oral tablet 1 tab tb4 four times a day [Active]; Eliquis 5 mg oral tablet 1 tab 2 times per day [Active]; trazodone 100 mg oral tablet 4 tabs every day at bedtime [Active]; pravastatin 80 mg oral tablet 1 tab daily [Active]; - PMHx: 09/02 21:28 Cancer; CHF; DVT; COPD; tb4 - PSHx: 21:28 knee replacement; tb4 - Immunization history:: Adult Immunizations unknown. - Infectious Disease History:: Denies. - Social history:: Smoking status: unknown. Screenin/09 02:[address] [facility] ED Fall Risk Assessment (Adult) History of falling in the last 3 months, tb4 including since admission No falls in past 3 months (0 pts) Confusion or Disorientation Yes (5 pts) Intoxicated or Sedated No (0 pts) Impaired Gait Yes (1 pt) Mobility Assist Device Used Yes (1 pt) Altered Elimination Yes (1 pt) Score/Fall Risk Level 3 or more points = High Risk Maintained a safe environment. Nutritional screening: No deficits noted. Per care given patient eats well. Tuberculosis screening: No symptoms or risk factors identified. 03:38 Abuse screen: Denies threats or abuse. Denies injuries from another. kd3 Assessment: 02:15 General: PT TRANSFERRED INTO THIS RN'S CARE. PT TRANSFERRED TO TRAUMA BAY FOR LOW BP kd3 AND UNRESPONSIVE. PT WAS ADMINISTERED FLUID BOLUS, ALBUMIN, WELL NARCAN IV. PT BECAME RESPONSIVE AFTER NARCAN ADMINISTRATION AND BP IMPROVED. CENTRAL LINE SET UP AND PLACED BY THE PROVIDER. NARCAN DRIP STARTED. PT IS ALERT AND ORIENTED X 3. PT REMAINS ON BIPAP AND IS CURRENTLY HEMODYNAMICALLY STABLE. . Pain:. Pain: Complains of pain in GENERAL BODY ACHES. Neuro: Level of Consciousness is awake, alert, obeys commands, Oriented to person, place, time. Cardiovascular: Capillary refill < 3 seconds Patient's skin is warm and dry. Respiratory: Airway is patent Respiratory effort is even, unlabored. 03:22 General: NARCAN RUNNING AT 0.6 MG PER HOUR . kd3 05:12 General: PT IS MORE ALERT AND ORIENTED, O2 SATURATION IS MAINTAINING AT 100 % ON ROOM kd3 AIR. PT PASSED SWALLOW EVALUATION. PT IS STABLE FOR CT AT THIS TIME. . 06:54 General: Pt is resting on her left side, eyes closed, respirations are even and kd3 unlabored. . Vital Signs: 09/02 19:45 BP 108 / 71; Pulse 87; Resp 19; Pulse Ox 99% on R/A; Pain 0/10; tb4 20:50 BP 108 / 71; Pulse 64; Resp 21; Pulse Ox 100% on R/A; tb4 21:50 BP 97 / 57; Pulse 92; Resp 17; Temp 99.2(A); Pulse Ox 100% on R/A; tb4 22:50 BP 125 / 68; Pulse 78; Resp 19; Pulse Ox 95% on R/A; tb4 23:51 BP 101 / 57; Pulse 92; Resp 17; Pulse Ox 100% on R/A; tb4 09/03 02:00 BP 94 / 50; Pulse 108; Resp 22; Pulse Ox 90% on Non-rebreather mask; kd3 02:30 BP 99 / 84; Pulse 102; Resp 21; Pulse Ox 92% on Non-rebreather mask; kd3 02:46 BP 114 / 72; Pulse 67; Resp 20; Pulse Ox 94% on BiPAP; kd3 02:50 BP 123 / 59; Pulse 68; Resp 18; Pulse Ox 100% on BiPAP; kd3 03:30 BP 115 / 98; Pulse 56; Resp 17; Pulse Ox 99% on BiPAP; kd3 03:34 BP 115 / 98; Pulse 52; Resp 20; Pulse Ox 100% on BiPAP; kb4 05:14 BP 128 / 88; Pulse 56; Resp 19; Pulse Ox 100% on R/A; kd3 06:53 BP 96 / 55; Pulse 56; Resp 17; Pulse Ox 93% on R/A; kd3 18:16 BP 107 / 68; Pulse 60; Resp 18; Temp 97.4; Pulse Ox 100% on R/A; nh2 09/02 19:45 Pain Scale: Non-Verbal tb4 09/02 19:45 No s/s of distress noted tb4 ED Course: 19:23 Patient arrived in ED. kmf 19:23 Rafa Thornton PA-C is PHCP. cp 19:23 Chris Adam DO is Attending Physician. cp 19:29 Patient has correct armband on for positive identification. Bed in low position. Call tb4 light in reach. Side rails up X 1. Side rails up X2. Adult w/ patient. Client placed on continuous cardiac and pulse oximetry monitoring. NIBP monitoring applied. quality assurance monitor final on. Warm blanket given. 19:54 Radiology exam delayed due to lab results not completed at this time. (BUN/Creatinine) nj IV insertion attempt and/or patient not having appropriate IV at this time. 20:06 Arm band placed on left wrist. EKG completed in triage. Results shown to MD. tb4 20:30 Stroke CXR 1 View In Process Unspecified. EDMS 21:48 Inserted Assisted Ryan KELLY with an external jugular IV in the right side of the rk3 neck. 21:50 Initial lab(s) drawn, by me, sent to lab. First set of blood cultures drawn by me, rk3 Second set of blood cultures drawn by me. 21:52 Head Brain Wo Cont CT In Process Unspecified. EDMS 09/03 00:03 Deon Pierce MD is Hospitalizing Provider. cp 00:42 BIPAP Sent. tb4 01:00 Ribera cath inserted, using sterile technique, 16 Fr., by ky, balloon inflated, to tb4 gravity drainage, urine specimen collected. 01:31 Missed attempt(s): 20 gauge Bleeding controlled, band aid applied, catheter tip intact. kmf 01:55 Sejal Aguilera, RN is Primary Nurse. kb4 02:05 Triage completed. tb4 02:11 EKG done, by ED staff, reviewed by Rafa Thornton PA-C. tb4 03:21 Assisted provider with central line placement. Set up central line tray. Triple lumen kd3 line placed in right femoral. Line placed by Chris Adam DO Placement verified by blood return, Dressed with Tegaderm, Blood was collected. Patient tolerated well. 06:29 Patient admitted, IV remains in place. kd3 06:29 Provided Education on: central line . kd3 Administered Medications: 09/02 22:29 CANCELLED (Physician Discretion): ns 0.9% 500 ml 500 ml IV at 1 bolus once; to be given cp as a bolus over 90 minutes 23:35 CANCELLED (patient altered): [id number] mg PO once cp 09/03 02:51 Drug: Naloxone IVP 1 mg IVP once Route: IVP; Site: right jugular; kd3 03:20 Follow up: Response: No adverse reaction; RASS: Agitated (+2) kd3 02:51 Drug: NS 0.9% IV 1000 ml IV at 1000 ml once; to be given as a bolus over 60 minutes kd3 Route: IV; Rate: 1000 ml; Site: right jugular; 03:20 Follow up: IV Status: Completed infusion; IV Intake: 1000ml kd3 02:51 Drug: Albumin IVPB 25 grams 100 ml IVPB once; (Note: Albumin 25% concentration) Volume: kd3 100 ml; Route: IVPB; Site: right jugular; 03:20 Follow up: IV Status: Completed infusion kd3 03:33 Drug: NARcan IVP 5 mg IVP at 1 mg/hr once Route: IVP; Rate: 1 mg/hr; Site: Other; kb4 05:15 Follow up: Response: No adverse reaction kd3 05:16 Follow up: Response: No adverse reaction; RASS: Alert and Calm (0) kd3 05:14 Drug: Clopidogrel PO 300 mg PO once Route: PO; kd3 07:00 Follow up: Response: No adverse reaction nh2 Medication: 09/02 20:50 VIS not applicable for this client. tb4 Intake: 09/03 03:20 IV: 1000ml; Total: 1000ml. kd3 Outcome: 00:04 Decision to Hospitalize by Provider. cp 06:29 Admitted to ER Hold. Please see [facility] for further documentation. kd3 06:29 Condition: stable 06:29 Discharge instructions given to patient, Instructed on the need for admit, 18:17 Patient left the ED. nh2 Signatures: Dispatcher [employer] EDMS Rafa Thornton PA-C PA-C cp Jordan, Nathan nj Doucette, Kyli RN RN kd3 Sangita Leal Jr, Noel, RN RN nh2 Sejal Aguilera RN RN kb4 Freddie Canales 3 Karen Perkins RN RN tb4 Corrections: (The following items were deleted from the chart) 02:25 09/02 21:28 Home Meds: Morphine Oral; tb4 tb4 09/03 02:25 09/02 21:28 Home Meds: diazepam Oral; tb4 tb4 09/03 02:25 09/02 21:28 Home Meds: Eliquis Oral; tb4 tb4 09/03 02:25 09/02 21:28 Home Meds: Trazodone Oral; tb4 tb4 09/03 02:25 02:15 Allergies: pravastatin; tb4 tb4 03:48 02:45 General: NARCAN RUNNING AT 0.6 MG PER HOUR . kd3 kd3
[2025-09-03 00:50] LABS: Sqamous Epithelial <5 /HPF (None Seen); Urine Culture Reflex Order NOT NEEDED; Urine Microscopic Reflex YN ORDER UMIC
[2025-09-03 00:59] LABS: METHAMPHETAM NEGATIVE (NEGATIVE); THC Cannibis NEGATIVE (NEGATIVE)
[2025-09-03] MEDS ORDERED: ALBUMIN HUMAN 25% 100 ML IV ONE (01:57)
[2025-09-03] MEDS ORDERED: NA CHLORIDE 0.9% 1,000 ML ONE ×3 (01:57→14:40)
[2025-09-03] MEDS ORDERED: NALOXONE HCL 2 MG/2 ML VIAL ONE ×2 (01:58→02:23)
[2025-09-03] MEDS ORDERED: LIDOCAINE 2% MPF 5 ML VIAL ONE (02:25)
[2025-09-03] MEDS ORDERED: NA CHLORIDE 0.9% 50 ML ONE (02:25)
[2025-09-03] MEDS ORDERED: CLOPIDOGREL 75 MG TABLET ONE (05:00)
--- NOTE | 2025-09-03 05:15 | P.HP ---
Certification for Inpatient Patient admitted to: Inpatient With expected LOS: >2 Midnights Practitioner: I am a practitioner with admitting privileges, knowledge of patient current condition, hospital course, and medical plan of care. Services: Services provided to patient in accordance with Admission requirements found in Title 42 Section 412.3 of the Code of Federal Regulations Patient History Date of Service: 09/03/25 Reason for admission: Altered mental status History of Present Illness: 75-year-old female with past medical history of COPD, anxiety, depression, PTSD, hypertension, hyperlipidemia, history of CAD, arthritis, chronic back pain, osteoporosis who has been on chronic pain medications brought to ER with altered mental status. Patient is altered drowsy and hard to arouse hence most of the history is obtained from the chart review and also talking to the ER physician. No fever or chills. No nausea vomiting or diarrhea. Denies any chest pain. Patient was assessed in the ER with a CT of the head which was negative and was admitted for further management of acute encephalopathy Allergies codeine [Codeine] Allergy (Intermediate, Verified 05/19/14 02:17) ANAPHLAXIS erythromycin base [From E-Mycin] Allergy (Intermediate, Verified 05/19/14 02:17) ANAPHALAXIS hydrocodone [Hydrocodone] Allergy (Intermediate, Verified 05/19/14 02:17) ANAPHALAXIS Penicillins Allergy (Intermediate, Verified 05/19/14 02:17) ANAPHALAXIS aspirin Allergy (Unknown, Verified 05/19/14 02:17) advil ibuprofen [From Advil] Allergy (Unknown, Verified 05/19/14 02:17) Anaphylaxis acetaminophen [From Darvocet-N 100] Allergy (Unverified 01/02/17 19:28) Unknown naproxen [From Naprosyn] Allergy (Verified 05/19/14 02:17) Unknown pentazocine lactate [From Talwin] Allergy (Verified 05/19/14 02:29) Anaphylaxis propoxyphene [From Darvocet-N 100] Allergy (Unverified 01/02/17 19:28) Unknown propoxyphene HCl [From Darvon] Allergy (Verified 05/19/14 02:28) Anaphylaxis Tetracyclines Allergy (Unverified 01/02/17 19:28) Unknown thiopental sodium [From Pentothal] Allergy (Verified 05/19/14 02:38) Anaphylaxis cyclines Allergy (Uncoded 05/19/14 02:51) Anaphylaxis Home medications list reviewed: Yes Home Medications: Albuterol [Proventil] 2 sprays IH PRN PRN 07/27/12 Trazodone HCl 300 mg PO BEDTIME 07/27/12 Budesonide/Formoterol Fumarate [Symbicort 160-4.5 Mcg Inhaler] 2 puff IH BID 05/19/14 Ipratropium/Albuterol Sulfate [Duoneb 0.5 mg-3 mg/3 ml Soln] 3 ml IH Q4H PRN 05/19/14 diazePAM [Valium*] 5 mg PO PRN PRN 05/19/14 levoFLOXacin [Levaquin*] 500 mg PO DAILY #7 tab 05/20/14 predniSONE [Prednisone*] 60 mg PO DAILY #30 tab 05/20/14 - Past Medical/Surgical History Diabetic: No Past Medical History: Reviewed- Non-Contributory -: Hyperlipidemia/[place] -: Heart murmur at 32 yrs old -: allergies/hayfever/asthma/pneumonis -: COPD/Bronchitis -: chronic UTI -: arthritis/back problems, fractures/dislocation -: osteoporosis/hip fx -: anxiety depression -: PTSD -: current smoker: 1.5 packs daily Past Surgical History: Reviewed- Non-Contributory -: left knee sx X6 -: knee replacement -: hysterectomy -: Left hip sx - Social History Smoking Status: Current every day smoker Alcohol use: No CD- Drugs: No Caffeine use: Yes Review of Systems is unable to be obtained Physical Examination - Vital Signs Temperature: 97.2 F Blood Pressure: 106/70 Pulse: 55 Respirations: 18 Pulse Ox (%): 94 - Physical Exam General: Moderate distress, Confused, Delirious HEENT: Atraumatic, Normocephalic Neck: Supple Respiratory: Diminished, Expiratory wheezes Cardiovascular: Regular rate/rhythm, Normal S1 S2 Capillary refill: <2 Seconds Gastrointestinal: Soft and benign, W/out hepatosplenomegaly Musculoskeletal: No clubbing Integumentary: No rashes Neurological: Other (Drowsy, hard to arouse, moves all the limbs) Lymphatics: No axilla or inguinal lymphadenopathy - Studies Laboratory Data (last 24 hrs) 09/02/25 09/02/25 09/02/25 21:50 21:50 21:50 WBC 13.00 H Hgb 12.6 Hct 37.9 Plt Count 146 L PT 12.1 INR 1.07 APTT 29.0 Sodium 140 Potassium 4.1 BUN 15 Creatinine 1.39 H Glucose 87 Magnesium 2.1 Total Bilirubin 0.2 AST 26 ALT 20 Alkaline Phosphatase 55 Assessment and Plan - Plan Acute encephalopathy Possible toxic CT head negative for any acute changes Patient is on Narcan drip Will admit to ICU Awaiting CTA head and neck Urine drug screen came back positive for opiates and benzodiazepines Monitor neuro vital signs closely NSTEMI possibly type II Will trend cardiac enzymes Will monitor telemetry Started on aspirin and statin Will get an echocardiogram Cardiology consult Acute hypoxic hypercapnic respiratory failure ABG findings noted Placed on BiPAP Will try to wean down oxygen requirement COPD Monitor closely on telemetry Started on bronchodilators Oxygen supplementation Steroids added ABG findings noted Chest x-ray findings noted Pulmonology consult GI/DVT prophylaxis Advanced directive full code Discharge Plan: Home Plan to discharge in: 48 Hours - Advance Directives Does patient have a Living Will: No Does patient have a Durable POA for Healthcare: No - Code Status/Comfort Care Code Status: Full Code Time Spent Managing Pts Care (In Minutes): 48
[2025-09-03] MEDS ORDERED: IPRATROPIUM BROM 0.5MG/2.5ML NEB PRN (05:18)
[2025-09-03] MEDS ORDERED: ACETAMINOPHEN 650MG/RECT SUPP PR PRN (05:18)
[2025-09-03] MEDS ORDERED: ALBUTEROL 2.5 MG/3 ML NEB SOL NEB PRN (05:18)
[2025-09-03] MEDS ORDERED: ONDANSETRON 4 MG/2 ML VIAL IV PRN (05:18)
[2025-09-03] MEDS: NA CHLORIDE 0.9% 1,000 ML IV SCH (06:00)
[2025-09-03] MEDS: FLU (Fluarix) 25-26 (6MOS UP)/PF 45 MCG/0.5 ML Syringe IM ONE (07:15)
[2025-09-03] MEDS: NA CHLORIDE 0.9% IV ONE (08:00)
[2025-09-03] MEDS: PNEUMOCOCCAL VACCINE 0.5 ML IMVAC ONE (08:00)
[2025-09-03] MEDS: NALOXONE IV ONE (08:00)
--- NOTE | 2025-09-03 08:14 | RAD REPORT ---
CT HEAD ANGIOGRAPHY WITH IV CONTRAST, CT NECK ANGIOGRAPHY WITH IV CONTRAST CLINICAL INDICATION: Mental status change COMPARISON: CT head performed on same day. TECHNIQUE: Following intravenous contrast administration, CT images were obtained through the head an d neck during the arterial phase. Multiplanar 3D/MIP and MPR reconstructions were provided. Dose lowering technique(s) such as automated exposure control, iterative reconstruction, mA and/or KV adju stment for patient's size was utilized for this examination. FINDINGS: CTA HEAD: POSTERIOR CIRCULATION: Vertebral artery dominance: Codominant Right vertebral artery: No significant stenosis. No aneurysm. Left vertebral artery: No significant stenosis. No aneurysm. Basilar artery: No significant stenosis. No aneurysm. Right NON DESTRUCTIVE TESTING TECHNICIAN: No significant stenosis. No aneurysm. Left NON DESTRUCTIVE TESTING TECHNICIAN: No significant stenosis. No aneurysm. Superior cerebellar arteries: Unremarkable. ANTERIOR CIRCULATION: Right ICA: No significant stenosis. No aneurysm. Right MCA: No significant stenosis. No aneurysm. Right RICO: No significant stenosis. No aneurysm. Left ICA: No significant stenosis. No aneurysm. Left MCA: No significant stenosis. No aneurysm. Left RICO: No significant stenosis. No aneurysm. CTA NECK: Aortic arch: Left aortic arch with classic three-vessel branching pattern. No aneurysm or dissection. Major branching vessels: No hemodynamically significant stenosis. No aneurysm or dissection. Vertebral arteries: No hemodynamically significant stenosis. No aneurysm or dissection. Right CCA: No hemodynamically significant stenosis. No aneurysm or dissection. Right ICA: Mild calcified plaque at carotid bulb. No hemodynamically significant stenosis. No aneur ysm or dissection. Right ECA: No aneurysm or dissection. Left CCA: No hemodynamically significant stenosis. No aneurysm or dissection. Left ICA: Mild calcified plaque at carotid bulb. No hemodynamically significant stenosis. No aneurysm or dissection. Left ECA: No aneurysm or dissection. Measurement of carotid stenosis is based on criteria described in the [place] Symptomatic [place] tid Endarterectomy Trial (NASCET). NASCET criteria for estimating stenosis compares the normal distal ICA diameter with the standard proximal ICA diameter. UPPER CHEST: Lung apices are clear. BONES: No acute or destructive osseous lesion. Mild multilevel degenerative changes of the spine with disc space narrowing, marginal osteophytosis, and uncovertebral hypertrophy. SOFT TISSUES: Unremarkable. OTHER: None. IMPRESSION: Negative CTA of the head and neck. Electronically signed by: Carlota Slaughter MD 09/03/2025 07:26 AM CDT RP Due to temporary technical issues with the PACS/[employer] reporting system, reports are being evangelina d by the in-house radiologist without review as a curtesy to ensure prompt reporting the interpreting radiologist is fully responsible for the contents of this report. Transcribed Date/Time: 09/03/2025 8:14 AM
--- NOTE | 2025-09-03 08:14 | RAD REPORT ---
CT HEAD ANGIOGRAPHY WITH IV CONTRAST, CT NECK ANGIOGRAPHY WITH IV CONTRAST CLINICAL INDICATION: Mental status change COMPARISON: CT head performed on same day. TECHNIQUE: Following intravenous contrast administration, CT images were obtained through the head an d neck during the arterial phase. Multiplanar 3D/MIP and MPR reconstructions were provided. Dose lowering technique(s) such as automated exposure control, iterative reconstruction, mA and/or KV adju stment for patient's size was utilized for this examination. FINDINGS: CTA HEAD: POSTERIOR CIRCULATION: Vertebral artery dominance: Codominant Right vertebral artery: No significant stenosis. No aneurysm. Left vertebral artery: No significant stenosis. No aneurysm. Basilar artery: No significant stenosis. No aneurysm. Right SORTER/ASSAY TECH: No significant stenosis. No aneurysm. Left SORTER/ASSAY TECH: No significant stenosis. No aneurysm. Superior cerebellar arteries: Unremarkable. ANTERIOR CIRCULATION: Right ICA: No significant stenosis. No aneurysm. Right MCA: No significant stenosis. No aneurysm. Right RICO: No significant stenosis. No aneurysm. Left ICA: No significant stenosis. No aneurysm. Left MCA: No significant stenosis. No aneurysm. Left RICO: No significant stenosis. No aneurysm. CTA NECK: Aortic arch: Left aortic arch with classic three-vessel branching pattern. No aneurysm or dissection. Major branching vessels: No hemodynamically significant stenosis. No aneurysm or dissection. Vertebral arteries: No hemodynamically significant stenosis. No aneurysm or dissection. Right CCA: No hemodynamically significant stenosis. No aneurysm or dissection. Right ICA: Mild calcified plaque at carotid bulb. No hemodynamically significant stenosis. No aneur ysm or dissection. Right ECA: No aneurysm or dissection. Left CCA: No hemodynamically significant stenosis. No aneurysm or dissection. Left ICA: Mild calcified plaque at carotid bulb. No hemodynamically significant stenosis. No aneurysm or dissection. Left ECA: No aneurysm or dissection. Measurement of carotid stenosis is based on criteria described in the [place] Symptomatic [place] Endarterectomy Trial (NASCET). NASCET criteria for estimating stenosis compares the normal distal ICA diameter with the standard proximal ICA diameter. UPPER CHEST: Lung apices are clear. BONES: No acute or destructive osseous lesion. Mild multilevel degenerative changes of the spine with disc space narrowing, marginal osteophytosis, and uncovertebral hypertrophy. SOFT TISSUES: Unremarkable. OTHER: None. IMPRESSION: Negative CTA of the head and neck. Electronically signed by: Carlota Slaughter MD 09/03/2025 07:26 AM CDT RP Due to temporary technical issues with the PACS/[employer] reporting system, reports are being evangelina d by the in-house radiologist without review as a curtesy to ensure prompt reporting the interpreting radiologist is fully responsible for the contents of this report. Transcribed Date/Time: 09/03/2025 8:13 AM
[2025-09-03] MEDS: HEPARIN 5000 UNIT/ML 1 ML VIAL SQ SCH (09:00)
[2025-09-03] MEDS ORDERED: FLU (Fluarix) 25-26 (6MOS UP)/PF 45 MCG/0.5 ML Syringe IM ONE ×2 (09:35→09:55)
[2025-09-03] MEDS ORDERED: HEPARIN 5000 UNIT/ML 1 ML VIAL ONE (09:35)
[2025-09-03] MEDS ORDERED: PNEUMOCOCCAL VACCINE 0.5 ML IMVAC ONE ×2 (09:36→09:55)
[2025-09-03 09:53] VITALS: BMI 18.8
--- NOTE | 2025-09-03 11:17 | P.CNS ---
Date of Consult: 09/03/25 Reason for Consult: Elevated troponin Requesting Physician: Dio Pierce Chief Complaint: Altered mental status History of Present Illness: 75-year-old female with PMH anxiety/depression, substance abuse, tobacco abuse, COPD, HTN, HLD, "CAD", chronic back pain, DVT (on apixaban), who presented to the ED for lethargy. Patient is presently admitted for opiate overdose, and is on a Narcan infusion. Patient was initially hypoxemic, for which she was placed on BiPAP (now off). She is unable to provide any history, which is obtained from the medical chart. Reportedly, she stated that she did not have any chest pain earlier in the ED. Patient remains confused at the time of exam. UTOX was positive for opiates and benzos. She was taking morphine at home, and may have overdosed. Echo 09/15/2024 showed normal LVEF. CXR shows no evidence of acute cardiopulmonary disease. 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 CTA head and neck negative. ECG shows SR with nonspecific anterior TWI. High- sensitivity cardiac troponin 482 and subsequently 260. Creatinine 1.39. Lactate 1.8. CPK 642. WBC 13, hemoglobin 12.6, and platelets 146K. Allergies codeine [Codeine] Allergy (Intermediate, Verified 05/19/14 02:17) ANAPHLAXIS erythromycin base [From E-Mycin] Allergy (Intermediate, Verified 05/19/14 02:17) ANAPHALAXIS hydrocodone [Hydrocodone] Allergy (Intermediate, Verified 05/19/14 02:17) ANAPHALAXIS Penicillins Allergy (Intermediate, Verified 05/19/14 02:17) ANAPHALAXIS aspirin Allergy (Unknown, Verified 05/19/14 02:17) advil ibuprofen [From Advil] Allergy (Unknown, Verified 05/19/14 02:17) Anaphylaxis acetaminophen [From Darvocet-N 100] Allergy (Unverified 01/02/17 19:28) Unknown naproxen [From Naprosyn] Allergy (Verified 05/19/14 02:17) Unknown pentazocine lactate [From Talwin] Allergy (Verified 05/19/14 02:29) Anaphylaxis propoxyphene [From Darvocet-N 100] Allergy (Unverified 01/02/17 19:28) Unknown propoxyphene HCl [From Darvon] Allergy (Verified 05/19/14 02:28) Anaphylaxis Tetracyclines Allergy (Unverified 01/02/17 19:28) Unknown thiopental sodium [From Pentothal] Allergy (Verified 05/19/14 02:38) Anaphylaxis cyclines Allergy (Uncoded 05/19/14 02:51) Anaphylaxis Home medications list reviewed: Yes (Incomplete due to patient's present mental status) Home Medications: Albuterol [Proventil] 2 sprays IH PRN PRN 07/27/12 Trazodone HCl 300 mg PO BEDTIME 07/27/12 Budesonide/Formoterol Fumarate [Symbicort 160-4.5 Mcg Inhaler] 2 puff IH BID 05/19/14 Ipratropium/Albuterol Sulfate [Duoneb 0.5 mg-3 mg/3 ml Soln] 3 ml IH Q4H PRN 05/19/14 diazePAM [Valium*] 5 mg PO PRN PRN 05/19/14 levoFLOXacin [Levaquin*] 500 mg PO DAILY #7 tab 05/20/14 predniSONE [Prednisone*] 60 mg PO DAILY #30 tab 05/20/14 - Past Medical/Surgical History Diabetic: No -: Hyperlipidemia/CT -: Heart murmur at 32 yrs old -: allergies/hayfever/asthma/pneumonis -: COPD/Bronchitis -: chronic UTI -: arthritis/back problems, fractures/dislocation -: osteoporosis/hip fx -: anxiety depression -: PTSD -: current smoker: 1.5 packs daily -: left knee sx X6 -: knee replacement -: hysterectomy -: Left hip sx - Social History Smoking Status: Current some day smoker Alcohol use: No CD- Drugs: No Caffeine use: Yes Review of Systems is unable to be obtained (Due to lethargy) Physical Examination Temp Pulse Resp BP Pulse Ox 97 F 48 L 16 120/60 98 09/03/25 10:12 09/03/25 10:12 09/03/25 10:12 09/03/25 10:12 09/03/25 10:12 General: Disheveled, Confused, Delirious HEENT: Atraumatic Neck: JVD not distended Respiratory: Diminished Cardiovascular: No edema, Normal S1 S2, No murmurs Capillary refill: <2 Seconds Gastrointestinal: Normal bowel sounds Musculoskeletal: No clubbing, No swelling Integumentary: No rashes Neurological: Other (Lethargic) Laboratory Data (last 24 hrs) 09/02/25 09/02/25 09/02/25 21:50 21:50 21:50 WBC 13.00 H Hgb 12.6 Hct 37.9 Plt Count 146 L PT 12.1 INR 1.07 APTT 29.0 Sodium 140 Potassium 4.1 BUN 15 Creatinine 1.39 H Glucose 87 Magnesium 2.1 Total Bilirubin 0.2 AST 26 ALT 20 Alkaline Phosphatase 55 Imagings Data: ECG and imaging reviewed - Problems (1) Elevated troponin Current Visit: Yes Status: Acute Plan: Trending down. Asymptomatic. Likely due to supply/demand mismatch from overdose and hypoxemia. Start aspirin and statin. Recommend echocardiogram for further risk stratification. (2) History of DVT (deep vein thrombosis) Current Visit: Yes Status: Acute Plan: On apixaban at home, unclear compliance. (3) JEFE (acute kidney injury) Current Visit: Yes Status: Acute Plan: Adjust cardiac medications for renal function; avoid nephrotoxins; monitor creatinine/electrolytes. (4) Drug overdose Current Visit: Yes Status: Acute Plan: Currently on Narcan infusion. Consider social work/psychiatric evaluation. (5) Acute hypoxemic respiratory failure Current Visit: Yes Status: Acute Plan: Likely secondary to drug overdose. Initially required BiPAP, and now off. Continue to monitor respiratory status closely. Conclusions/Impression: Thank you for the consult. Continue present management. Further recommendations pending clinical course and results of echo.
--- NOTE | 2025-09-03 17:54 | RAD REPORT ---
EXAMINATION: MRI BRAIN WITHOUT CONTRAST CLINICAL INDICATION: Female, 75 years old.[facility] TECHNIQUE: Multiplanar multisequence MR images of the brain were obtained without intravenous contras t. Unless otherwise specified, incidental findings do not require dedicated imaging follow-up. COMPARISON: Head CT 09/02/2025 FINDINGS: INTRACRANIAL: Midline structures are unremarkable. Diffusion-weighted images show no acute or early subacute infarction. Bilateral occipital and left parasagittal parietal regions of encephalomalacia may reflect sequelae of remote trauma or ischemia.. The ventricles are normal in size and morphology. No augmented susceptibility signal abnormality. There is no mass effect or midline shift. No abnormal extraaxial fluid collection. VASCULATURE: Normal signal voids in the larger intracranial arteries and dural venous sinuses. SINUSES: Moderate to advanced mucosal thickening with polypoidal mucosal thickening in the right sphe noid sinus, polyps extend along the posterior choana. mastoid air cells are predominantly clear. BONE: The marrow signal pattern is within normal limits. IMPRESSION: No significant intracranial abnormalities. Regions of encephalomalacia as above, concerning for remote ischemia or trauma. Polypoidal mucosal thickening within the sphenoid sinus and other inflammatory mucosal thickening as above.
[2025-09-04 06:33] LABS: Absolute Lymphocytes (CBC) 2.9 K/uL (0.7-4.9); Hematocrit 33.5 % (36.0-45.0); Hemoglobin 11.5 g/dL (12.0-15.0); MCH 34.9 pg (27.0-35.0); MCHC 34.2 g/dL (32.0-36.0); MCV 102.1 fL (80-100); MPV 9.0 fL (7.6-11.3); Nucleated RBC Absolute Count 0.0 (0-0); Nucleated Red Blood Cells % 0.0 % (0-0); RBC Red Blood Cell Count 3.29 M/uL (3.86-4.86); White Blood Count 7.20 thou/uL (4.3-10.9)
[2025-09-04 06:48] LABS: ALT/SGPT 23.0 U/L (13-56); AST/SGOT 33.0 U/L (15-37); Albumin 2.4 g/dL (3.4-5.0); Albumin/Globulin Ratio 1.0 (1.1-1.8); Alkaline Phosphatase 48.0 U/L (45-117); Anion Gap 3.9 mEq/L (5.0-15.0); BUN Blood Urea Nitrogen 15.0 mg/dL (7-18); Globulin 2.4 g/dL (2.3-3.5); Glucose Level 80.0 mg/dL (74-106); Potassium 3.9 mEq/L (3.5-5.1)
[2025-09-04 08:40] LABS: Influenza A Ag Negative; Influenza B Ag Negative; SARS-CoV-2 Antigen Rapid Res Negative (Negative)
--- NOTE | 2025-09-04 14:37 | P.PN ---
Subjective Date of Service: 09/04/25 Chief Complaint: Altered mental status No acute events overnight. Patient is now more awake and alert, however remains of poor historian. Denies chest pain. Denies shortness of breath. High- sensitivity cardiac troponins trended down. Echo pending. Physical Examination - Vital Signs Temperature: 98.2 F Blood Pressure: 149/66 Pulse: 53 Respirations: 16 Pulse Ox (%): 97 - Physical Exam General: In no apparent distress, Oriented x3 HEENT: Atraumatic, Normocephalic, EOMI Neck: JVD not distended Respiratory: Clear to auscultation bilaterally Cardiovascular: No edema, Normal S1 S2, No murmurs Capillary refill: <2 Seconds Gastrointestinal: Normal bowel sounds Musculoskeletal: No clubbing, No swelling Integumentary: No rashes, Other (Dry) Neurological: Normal speech - Studies Reviewed Imagings Data: Reviewed Assessment And Plan - Current Problems (Diagnosis) (1) Elevated troponin Current Visit: Yes Status: Acute Plan: Trending down. Asymptomatic. Likely due to supply/demand mismatch from overdose and hypoxemia. Continue aspirin and statin. Recommend echocardiogram for further risk stratification. If echo is normal, patient may follow-up me as outpatient for further evaluation. Patient also follows up with a salvage determiner in [place], but cannot recall the name at this time. (2) History of DVT (deep vein thrombosis) Current Visit: Yes Status: Acute Plan: On apixaban at home for "blood clot". Patient is a poor story and does not know details of her medical history. Follows with a salvage determiner in [place], but cannot recall the name. (3) JEFE (acute kidney injury) Current Visit: Yes Status: Acute Plan: Adjust cardiac medications for renal function; avoid nephrotoxins; monitor creatinine/electrolytes. (4) Drug overdose Current Visit: Yes Status: Acute Plan: Status post Narcan infusion. Now more awake and alert. (5) Acute hypoxemic respiratory failure Current Visit: Yes Status: Acute Plan: Initially required BiPAP, and now off. Continue to monitor respiratory status closely. - Plan Thank you for the consultation. Please call with any questions.
[2025-09-04] MEDS: HYDROMORPHONE HCL 1 MG/ML INJ IV ONE (15:42)
--- NOTE | 2025-09-04 17:07 | P.PN ---
Subjective Date of Service: 09/04/25 Chief Complaint: Altered mental status Subjective: Improving (Patient is alert and awake. Troponin trending down.) Physical Examination - Vital Signs Temperature: 98.2 F Blood Pressure: 157/71 Pulse: 58 Respirations: 17 Pulse Ox (%): 97 - Physical Exam General: Alert, In no apparent distress, Cooperative HEENT: Atraumatic, Normocephalic Respiratory: Clear to auscultation bilaterally, Normal air movement Cardiovascular: No edema, Regular rate/rhythm, Normal S1 S2 Neurological: Normal speech Assessment And Plan - Plan Assessment Patient is a 75-year-old female with a past medical history of chronic pain. She was brought into the ER by EMS due to decreased responsiveness. Patient was placed on Narcan infusion en route to the ER. Her mental status has returned to baseline. ABG did not reveal CO2 narcosis or significant respiratory acidosis. She stay in the hospital for cardiac evaluation due to elevated troponin. She is waiting to have a 2D echo. Acute encephalopathy Elevated troponin Chronic pain Generalized weakness Plan: Elevated troponin attributed to demand ischemia Patient is yet to have her 2D echo done and read This is needed by cardiology to dictate future management and risk stratification
[2025-09-04] MEDS: ASPIRIN EC 81 MG TAB PO ONE (18:32)
[2025-09-04 20:44] VITALS: BP 162/74; TEMP 97.8
[2025-09-04] MEDS: ATORVASTATIN 40 MG TAB PO SCH (21:31)
[2025-09-04 22:41] VITALS: O2SAT 95
== END 2025-09-04 22:29 | disposition left against medical advice (07) | DRG 917 ==
LOC: ER 19:02 → ERHOLD 09-03 05:18 → 2ND 09-03 18:00
PROVIDERS: ADMIT Internal Medicine; ATTEND Internal Medicine
PROC: 4A033R1 Measurement of Arterial Saturation, Peripheral, Percutaneous Approach (ICD-10-PCS; principal; 2025-09-02)
PROC: 5A09357 Assistance with Respiratory Ventilation, Less than 24 Consecutive Hours, Continuous Positive Airway Pressure (ICD-10-PCS; 2025-09-02)
DX: T40.2X1A Poisoning by other opioids, accidental (unintentional), initial encounter (principal); G92.9 Unspecified toxic encephalopathy; J96.01 Acute respiratory failure with hypoxia; I21.A1 Myocardial infarction type 2; J96.02 Acute respiratory failure with hypercapnia; N17.9 Acute kidney failure, unspecified; I95.9 Hypotension, unspecified; G89.29 Other chronic pain; M54.9 Dorsalgia, unspecified; I10 Essential (primary) hypertension; E78.5 Hyperlipidemia, unspecified; F43.10 Post-traumatic stress disorder, unspecified; M81.0 Age-related osteoporosis without current pathological fracture; J44.9 Chronic obstructive pulmonary disease, unspecified; I25.10 Atherosclerotic heart disease of native coronary artery without angina pectoris; F17.200 Nicotine dependence, unspecified, uncomplicated; Z23 Encounter for immunization; Z88.0 Allergy status to penicillin; Z88.5 Allergy status to narcotic agent; Z88.6 Allergy status to analgesic agent; Z88.1 Allergy status to other antibiotic agents; Z11.52 Encounter for screening for COVID-19; Z79.52 Long term (current) use of systemic steroids; Z79.01 Long term (current) use of anticoagulants; Z90.710 Acquired absence of both cervix and uterus; Z79.899 Other long term (current) drug therapy; Z86.718 Personal history of other venous thrombosis and embolism
CPT/HCPCS: 36415; 36556; 36569; 36600; 51702; 70450; 70496; 70498; 70551; 71045; 80048; 80053; 80076; 80307; 81001; 82077; 82550; 82805; 82947; 83605; 83735; 84443; 84484; 85025; 85610; 85730; 87040; 87428; 90471; 90656; 90732; 93005; 94660; 94760; 97116; 97161; 99285; J1644; J2003; J2312; J7030; P9047; Q9967